=== PATIENT | male | born 1965 | race African-American/Black ===

== ENCOUNTER 2021-02-17 14:17 | Emergency (ER) | payer OTHER, SELFPAY ==
--- NOTE | ~2021-02-17 | XR_ITS ---
EXAMINATION: XR chest 1V portable EXAM DATE: 02/17/2021 15:59 INDICATION: Cough, fever, chest pain, sinus drainage. TECHNIQUE: Frontal and lateral projections of the chest obtained and reviewed. There are no prior amanda dies for comparison. FINDINGS: The lungs are clear. There are no pleural effusions. The cardiomediastinal silhouette is within normal limits. There is no pneumothorax suspected. The bones and soft tissues are unremarkab le. IMPRESSION: No acute cardiopulmonary findings. Reviewed, dictated and finalized at location A. [employer]IST
[2021-02-17 14:28] VITALS: BP 102/79; PULSE 97; RESP 18; TEMP 37.8; O2SAT 100
[2021-02-17 15:38] VITALS: BP 133/83; PULSE 112; RESP 20; TEMP 39; O2SAT 100
[2021-02-17] MEDS: ACETAMINOPHEN 500 MG TABLET 1000 MG PO (16:14)
[2021-02-17 17:44] VITALS: BP 123/80; PULSE 104; RESP 18; TEMP 37.9; O2SAT 98
--- NOTE | 2021-02-17 17:45 | ED.GENADULT ---
HPI - General Adult General Chief complaint: Upper Respiratory Infection Stated complaint: cough Time Seen by Provider: 02/17/21 15:45 History of Present Illness HPI narrative: Patient is a 56-year-old male who presents ER with viral symptoms. Reports over the last 2 days he has been having fevers with chills and sweats. He has been having runny nose with sore throat and productive cough. He has had recurrent sneezing. Patient has had 3 Covid vaccinations with his most recent one January 252020. No aggravating or alleviating factors. No urinary symptoms. Related Data Allergies Allergy/AdvReac Type Severity Reaction Status Date / Time No Known Allergies Allergy Unknown Unknown Verified 02/17/21 15:42 Review of Systems Review of Systems: All systems reviewed & are unremarkable except as noted in HPI and below Constitutional: Constitutional: Reports chills, Reports fatigue and Reports fever(s) ENT: Denies dysphagia, Reports nasal congestion and Reports sore throat Cardiovascular: Cardiovascular: Denies chest pain, Denies rapid heart rate and Denies radiating jaw, neck or arm pain Respiratory: Respiratory: Reports cough, Denies dyspnea and Denies wheezing Gastrointestinal: Gastrointestinal: Denies abdominal pain, Denies nausea and Denies vomiting Genitourinary: Genitourinary: Denies dysuria and Denies urinary frequency PMFSH Past Medical History Medical History (Updated 02/17/21 @ 17:54 by Ihsan Keith MD) History of seizure disorder Surgical History Surgical History (Updated 02/17/21 @ 17:51 by Ihsan Keith MD) History of orthopedic surgery Pins in the right forearm Exam Narrative: GENERAL: Well-appearing, well-nourished, and in no acute distress. HEAD: Normocephalic, atraumatic. EYES: PERRL and EOMI. ENT: Mucous membranes moist. CHEST: Clear to auscultation. No respiratory distress. HEART: Tachycardic regular. Normal peripheral pulses. EXTREMITIES: Normal range of motion. No edema. NEURO: Alert and oriented x3. PSYCH: Normal mood and affect. Course Course Emergency Course: Influenza negative. Will swab for Covid. Declined IV fluid. Discharge home. Vital Signs Vital signs: Vital Signs Temperature 100.0 F H 02/17/21 14:28 Pulse Rate 97 02/17/21 14:28 Respiratory Rate 18 02/17/21 14:28 Blood Pressure 102/79 02/17/21 14:28 Pulse Oximetry 100 02/17/21 14:28 Temperature 102.2 F H 02/17/21 15:38 Pulse Rate 112 H 02/17/21 15:38 Respiratory Rate 20 02/17/21 15:38 Blood Pressure 133/83 02/17/21 15:38 Pulse Oximetry 100 02/17/21 15:38 Medical Decision Making Vital Signs Vital Signs: Vital Signs Temperature 100.0 F H 02/17/21 14:28 Pulse Rate 97 02/17/21 14:28 Respiratory Rate 18 02/17/21 14:28 Blood Pressure 102/79 02/17/21 14:28 Pulse Oximetry 100 02/17/21 14:28 Temperature 102.2 F H 02/17/21 15:38 Pulse Rate 112 H 02/17/21 15:38 Respiratory Rate 20 02/17/21 15:38 Blood Pressure 133/83 02/17/21 15:38 Pulse Oximetry 100 02/17/21 15:38 Lab Data Labs: Influenza A Screen Negative Reference Range: Negative Influenza B Screen Negative Reference Range: Negative Discharge Plan Discharge Clinical Impression: Viral infection Patient Disposition: Home, Self-Care Condition: Stable Instructions: Viral Syndrome (ED) Additional Instructions: Return the ER if you have fever of 100.4 ?F, you cannot keep down food or water, you have chest pain or shortness of breath, you have additional concerns. Remain in isolation until you receive a negative Covid test. Follow-up/Referrals: PHYSICIAN NOT ON STAFF,NONSTAFF [Primary Care Provider] - 1 Week
[2021-02-17 18:12] VITALS: BP 115/81; PULSE 110; RESP 16; TEMP 37.9; O2SAT 99
[2021-02-18 20:10] LABS: SARS-CoV-2 RNA PCR Negative
== END 2021-02-17 18:15 | disposition home or self-care (01) ==
PROVIDERS: Emergency Provider Emergency Medicine
DX: B34.9 Viral infection, unspecified (principal); Z20.822 Contact with and (suspected) exposure to COVID-19; G40.909 Epilepsy, unspecified, not intractable, without status epilepticus
CPT/HCPCS: 71045; 87804; 99283; A9270; C9803; U0003; U0005

== ENCOUNTER 2021-03-16 10:00 | Emergency (ER) | payer OTHER, SELFPAY ==
[2021-03-16 10:03] VITALS: BP 152/78; PULSE 70; RESP 16; TEMP 36.1; O2SAT 100
--- NOTE | 2021-03-16 10:46 | ED.EAR ---
HPI - Ear Problem General Chief complaint: Ear Stated complaint: Ear ache Time Seen by Provider: 03/16/21 10:34 Source: patient Mode of arrival: ambulatory Limitations: no limitations History of Present Illness HPI Narrative: This is a 56-year-old male that presents to the emergency department for right ear pain. Reports he noted a spot on the outer ear that was tender a couple of days ago. Reports when he woke up today he noticed an area of swelling. Denies fever or drainage. Related Data Allergies Allergy/AdvReac Type Severity Reaction Status Date / Time No Known Allergies Allergy Unknown Unknown Verified 02/17/21 15:42 Review of Systems Review of Systems: CONSTITUTIONAL: Denies fever ENT: Reports otalgia. All systems reviewed & are unremarkable except as noted in HPI and below PMFSH Past Medical History Medical History (Updated 03/16/21 @ 10:50 by Melissa Marion PA-C) History of diabetes mellitus History of seizure disorder Surgical History Surgical History (Updated 02/17/21 @ 17:51 by Ihsan Keith MD) History of orthopedic surgery Pins in the right forearm Social History Social History (Updated 03/16/21 @ 10:47 by Melissa Marion PA-C) Smoking status: Current every day smoker Exam Narrative: GENERAL: Well-appearing, well-nourished, and in no acute distress. HEAD: Normocephalic, atraumatic. EYES: EOMI. ENT: Bilateral external auditory canals are normal. Bilateral TMs pearly escalona non-bulging. Right outer ear with a small (1.5cm) area of erythema with central punctum NECK: Supple. No adenopathy or masses. CHEST: No respiratory distress. HEART: Regular rate EXTREMITIES: Normal range of motion. No edema. SKIN: Warm, dry, no rash. NEURO: No focal deficits. Alert and oriented x3. PSYCH: Normal mood and affect Course Vital Signs Vital signs: Vital Signs Temperature 97.0 F L 03/16/21 10:03 Pulse Rate 70 03/16/21 10:03 Respiratory Rate 16 03/16/21 10:03 Blood Pressure 152/78 H 03/16/21 10:03 Pulse Oximetry 100 03/16/21 10:03 Temperature 97.0 F L 03/16/21 10:03 Pulse Rate 70 03/16/21 10:03 Respiratory Rate 16 03/16/21 10:03 Blood Pressure 152/78 H 03/16/21 10:03 Pulse Oximetry 100 03/16/21 10:03 Procedures Abscess I/D other: Date of Incision: 03/16/21 Time of Incision: 10:48 Side (if applicable): right Sedation/analgesia: none Local Anesthetic: none Technique: other (purulent drainage manually expressed) Irrigation: No Packing used?: none I&D Results: Pus and Blood Medical Decision Making MDM Narrative Medical decision making narrative: Patient presents to the emergency department for a small abscess noted to the right external ear. He is afebrile and nontoxic-appearing. External auditory canal and TM is normal. I did express drainage from a small abscess on the outer ear. This was sent for culture. Patient will be started on oral antibiotics. He is stable and felt appropriate for further outpatient evaluation. He was given warnings to return to the ER Vital Signs Vital Signs: Vital Signs Temperature 97.0 F L 03/16/21 10:03 Pulse Rate 70 03/16/21 10:03 Respiratory Rate 16 03/16/21 10:03 Blood Pressure 152/78 H 03/16/21 10:03 Pulse Oximetry 100 03/16/21 10:03 Temperature 97.0 F L 03/16/21 10:03 Pulse Rate 70 03/16/21 10:03 Respiratory Rate 16 03/16/21 10:03 Blood Pressure 152/78 H 03/16/21 10:03 Pulse Oximetry 100 03/16/21 10:03 Critical Care Time Critical Care Time Critical Care Time: No Discharge Plan Discharge Clinical Impression: Abscess of right external ear Patient Disposition: Home, Self-Care Condition: Stable Instructions: Antibiotic Form, Abscess (ED) Additional Instructions: Return if symptoms worsen or concerns: any increase in redness, swelling, pain or fever over 101 Take antibiotics as directed. Clean wound wit
== END 2021-03-16 10:55 | disposition home or self-care (01) ==
LOC: ANHED 10:51
PROVIDERS: Emergency Provider Emergency Medicine
DX: H60.01 Abscess of right external ear (principal); E11.9 Type 2 diabetes mellitus without complications; G40.909 Epilepsy, unspecified, not intractable, without status epilepticus; F17.200 Nicotine dependence, unspecified, uncomplicated
CPT/HCPCS: 87070; 87205; 99283

== ENCOUNTER 2021-06-14 17:58 | Emergency (ER) | payer OTHER, SELFPAY ==
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
[2021-06-14 18:02] VITALS: BP 145/89; PULSE 69; RESP 18; TEMP 36.4; O2SAT 100
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
== END 2021-06-14 19:47 | disposition home or self-care (01) ==
PROVIDERS: Emergency Provider Emergency Medicine
DX: M67.431 Ganglion, right wrist (principal); E11.9 Type 2 diabetes mellitus without complications; G40.909 Epilepsy, unspecified, not intractable, without status epilepticus
CPT/HCPCS: 73130; 99283

== ENCOUNTER 2021-06-27 16:13 | Emergency (ER) | payer OTHER, SELFPAY ==
--- NOTE | ~2021-06-27 | CT_ITS ---
EXAMINATION: CT brain wo con DATE: 06/27/2021 17:29 INDICATION: dizziness TECHNIQUE: Computed tomography (CT) of the head was performed without intravenous contrast. The mA wa s adjusted according to patient size. Iterative reconstruction technique was employed. The dose-lengt h product was 605.33 mGy-cm. COMPARISON: None FINDINGS: No acute intracranial hemorrhage or extra-axial fluid collection. No hydrocephalus, mass, or herniation. No acute ischemic infarct. Unremarkable dural venous sinus attenuation. No acute osseous abnormality. The aerated spaces are clear. IMPRESSION: No acute intracranial process. Reviewed, dictated and finalized at location K.
[2021-06-27 16:17] VITALS: BP 121/83; PULSE 70; RESP 18; TEMP 36.5; O2SAT 100
--- NOTE | 2021-06-27 17:15 | ECG_ITS ---
Measurements Intervals [place] Rate: 52 P: 79 AR: 167 QRS: 52 QRSD: 86 T: 68 QT: 398 QTc: 373 Interpretive Statements SINUS BRADYCARDIA VOLTAGE CRITERIA FOR LVH [MEETS CRITERIA IN ONE OF: R(aVL), S(V1), R(V5), R(V5/V6)+S(V1)] NO PREVIOUS ECG AVAILABLE FOR COMPARISON Electronically Signed On 06-28-2021 11:41:20 CDT by Avery Woodruff M.D.
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
--- NOTE | 2021-06-27 17:41 | PC.NURSE ---
Pt returned from imaging
[2021-06-27 17:49] LABS: Basophils Absolute Auto 0.1 K/mm3 (0.0-0.1); Basophils Percent Auto 0.8 % (0.2-1.2); Eosinophils Absolute Auto 0.4 K/mm3 (0-0.3); Eosinophils Percent Auto 4.7 % (0-4.4); Hematocrit 43.9 % (42.0-52.0); Hemoglobin 13.6 g/dL (14.0-18.0); Immature Granulocyte Absolute 0.03 K/mm3 (0.00-0.031); Immature Granulocyte Percent A 0.4 % (0-0.5); Lymphocytes Absolute Auto 3.16 K/mm3 (0.9-3.2); Lymphocytes Percent Auto 42.5 % (18.3-44.2); Mean Corpuscular Hemoglobin 27.1 pg (26-34); Mean Corpuscular Volume 87.5 fl (80-100); Mean Platelet Volume 9.4 fl (7.4-10.4); Monocytes Absolute Auto 0.6 K/mm3 (0.1-0.6); Monocytes Percent Auto 7.5 % (2.6-8.5); Neutrophils Absolute Auto 3.3 K/mm3 (1.3-6.7); Neutrophils Percent Auto 44.1 % (45.5-73.1); Platelet Count Result 244 k/mm3 (150-375); Red Blood Count 5.02 M/mm3 (4.6-6.20); Red Cell Distribution Width 14.1 % (11.5-14.5); White Blood Count 7.4 K/mm3 (4.5-10.0)
[2021-06-27 18:00] LABS: Alanine Aminotransferase 20 U/L (4-50); Albumin Level 4.3 g/dL (3.5-5.1); Alkaline Phosphatase 80 U/L (38-126); Anion Gap 6 mmol/L (8-16); Aspartate Amino Transferase 29 U/L (17-59); Bilirubin,Total < 0.1 mg/dL (0.2-1.3); Blood Urea Nitrogen 11 mg/dL (9-20); Carbon Dioxide 26 mmol/L (22-30); Chloride 108 mmol/L (98-107); Estimated CRCL calculation 79 ml/min; Estimated Glomerular Filt Rate > 60; Glucose 86 mg/dL (65-110); Potassium 4.6 mmol/L (3.4-5.0); Sodium 140 mmol/L (137-145)
[2021-06-27 18:09] LABS: Troponin I < 0.012 ng/mL (0.000-0.034)
[2021-06-27 18:11] LABS: Phenytoin Dilantin < 3 ug/mL (10-20)
[2021-06-27 18:36] LABS: Hemoglobin A1C 6.1 % (<5.7)
[2021-06-27 18:42] LABS: Valproic Acid < 10.0 ug/mL (50-120)
[2021-06-27 18:50] LABS: Appearance Urine Clear (Clear); Bilirubin Urine Negative (Negative); Color Urine Yellow (Yellow); Glucose Urine UA Negative (Negative); Ketones Urine Negative (Negative); Leukocyte Esterase Ur Trace LEU/UL (Negative); Nitrate Urine Negative (Negative); Protein Urine Negative (Negative); Specific Grav Ur 1.025 (1.001-1.035); Urobilinogen Urine 0.2 mg/dL (<2.0)
[2021-06-27 18:56] LABS: Add Urine Microscopic? YES; Blood Urine Trace-Intact (Negative)
[2021-06-27 19:06] LABS: Bacteria Urine Trace /hpf; Squamous Epithelial Cell Urine Rare /hpf (Few)
[2021-06-27 19:29] VITALS: PULSE 78; RESP 18; O2SAT 98
== END 2021-06-27 19:29 | disposition home or self-care (01) ==
PROVIDERS: Emergency Provider Nurse Practitioner Family
DX: R42 Dizziness and giddiness (principal); G40.909 Epilepsy, unspecified, not intractable, without status epilepticus; E11.9 Type 2 diabetes mellitus without complications; F17.200 Nicotine dependence, unspecified, uncomplicated; R00.1 Bradycardia, unspecified; R94.31 Abnormal electrocardiogram [ECG] [EKG]
CPT/HCPCS: 36415; 70450; 80053; 80164; 80185; 81001; 83036; 84484; 85025; 87086; 93005; 99284

== ENCOUNTER 2021-09-21 09:28 | Outpatient (CLI) | payer OTHER, SELFPAY ==
--- NOTE | 2021-09-21 11:00 | NEURO_ITS ---
Impression: # Complains of numbness of right hand. # Right Carpal Tunnel Syndrome. # Right ulnar neuropathy across the elbow. # Possible underlying neuropathy as well. # Needle/EMG exam not requested. Nerve Conduction Studies Anti Sensory Summary Table Stim Site NR Peak (ms) P-T Amp (?V) Site1 Site2 Delta-P (ms) Dist (cm) Santos (m/s) Right Median Anti Sensory (2-3nd Digit) Wrist 3.6 21.4 Wrist 2-3nd Digit 3.6 14.0 39 Wrist 3.4 9.2 Wrist 2-3nd Digit 3.6 14.0 39 Right Radial Anti Sensory (Base 1st Digit) Wrist 2.5 33.4 Wrist Base 1st Digit 2.5 0.0 Right Ulnar Anti Sensory (5th Digit) Wrist 4.0 13.2 Wrist 5th Digit 4.0 14.0 35 Motor Summary Table Stim Site NR Onset (ms) O-P Amp (mV) Site1 Site2 Delta-0 (ms) Dist (cm) Santos (m/s) Right Median Motor (Abd Poll Brev) Wrist 4.5 1.6 Elbow Wrist 5.7 31.0 54 Elbow 10.2 3.6 Right Ulnar Motor (Abd Dig Minimi) Wrist 2.8 4.1 A Elbow Wrist 7.0 31.0 44 A Elbow 9.8 2.8 B Elbow Wrist 4.5 23.0 51 B Elbow 7.3 3.5 F Wave Studies NR F-Lat (ms) L-R F-Lat (ms) Right Median (Mrkrs) (Abd Poll Brev) 32.36 Right Ulnar (Mrkrs) (Abd Dig Min) 33.89 MTDD
== END 2021-09-21 09:29 | disposition home or self-care (01) ==
LOC: ANHNEURO 09:30
PROVIDERS: Visit Provider Plastic Surgery
DX: R20.2 Paresthesia of skin (principal); R20.0 Anesthesia of skin; G56.01 Carpal tunnel syndrome, right upper limb; G56.21 Lesion of ulnar nerve, right upper limb
CPT/HCPCS: 95909

== ENCOUNTER 2021-10-13 09:35 | Outpatient (CLI) | payer OTHER, SELFPAY ==
[2021-10-13 10:18] LABS: Anion Gap 8 mmol/L (8-16); Blood Urea Nitrogen 9 mg/dL (9-20); Calcium 8.5 mg/dL (8.4-10.2); Carbon Dioxide 27 mmol/L (22-30); Chloride 104 mmol/L (98-107); Estimated Glomerular Filt Rate > 60; Glucose 91 mg/dL (65-110); Potassium 4.4 mmol/L (3.4-5.0); Sodium 139 mmol/L (137-145)
[2021-10-13 10:22] LABS: Phenytoin Dilantin < 3 ug/mL (10-20)
[2021-10-13 11:03] LABS: Valproic Acid < 10.0 ug/mL (50-120)
== END 2021-10-13 09:36 | disposition home or self-care (01) ==
LOC: ANHSURGERY 09:40
PROVIDERS: Anesthesiology; Visit Provider Plastic Surgery
DX: Z01.818 Encounter for other preprocedural examination (principal); G40.909 Epilepsy, unspecified, not intractable, without status epilepticus; E11.9 Type 2 diabetes mellitus without complications
CPT/HCPCS: 36415; 80048; 80164; 80185

== ENCOUNTER 2021-10-19 01:13 | Day surgery (SDC) | payer OTHER, SELFPAY ==
[2021-10-12 10:06] VITALS: BMI 21.5
--- NOTE | 2021-10-12 10:17 | PC.NURSE ---
Report to the Outpatient Waiting Room, entrance under the green pavilion located off [facility], at time 6:00 on date 10/19/21. OR Time: 7:30. - You and your visitor will be asked a series of questions to screen for COVID 19 for your protection. - Only one visitor is allowed at this time. - The patient visitor is requested to leave or wait in car when not with patient. - A mask is required within the hospital. Patients may have clear liquids (water, carbonated beverages, clear teas, apple juice) until 3 hours prior to surgery (4:30) with a maximum of 20 ounces. - No food from midnight until time of surgery Take the following medications with a SIP of water the morning of surgery: DIVALPROEX, PHENYTOIN Medications to discontinue per physician: N/A Date to take last dose: N/A Please no make-up, nail vietnamese, hairspray, perfume, deodorant, or body powder the day of surgery. No jewelry (including any body piercings) or valuables the day of surgery, leave them at home. Please take a shower or bath the night before, or the morning of, surgery with an antibacterial soap. Wear comfortable, loose fitting clothing. - Jewelry must be removed prior to entering the operating room. Rings and piercings that are not removed may be cut off. - The hospital will not accept responsibility for valuables. - Please leave all valuables, including medications, at home the day of surgery. If you are going home after surgery, a licensed regional [employer] company driver must drive you home. - NO public transportation without another adult. - We recommend that an adult stay with you for 24 hours following discharge. - We also recommend that you do not drive, make important decision, drink alcoholic beverages, or take any drugs that were not prescribed by your health care provider for at least 24 hours after your discharge time. Follow any additional instructions given to you from your surgeon. If you or anyone in your household have experienced Covid symptoms in the past week, please notify your surgeon or the nurse liaison at the phone number below for possible testing. Telephone instructions given to PT - JIHAN SILVERIO and asked if any additional questions and then verbalized understanding. Patient advised to call surgeon office or pre surgery nurse liaison [phone] if any additional questions.
--- NOTE | 2021-10-19 07:10 | WPDHPUPDATE1 ---
History and Physical Update Update Date/Time: 10/19/21 07:10 History and Physical has been reviewed, including an updated exam of the patient. There are NO changes in the patient's condition. Risks, benefits, and alternatives have been discussed and questions answered. Patient agrees to proceed with procedure.
[2021-10-19 08:42] VITALS: BP 128/69; PULSE 56; RESP 20; TEMP 36.2; O2SAT 100
[2021-10-19] MEDS: LACTATED RINGERS 1,000 ML 30 ML IV CONT (09:20)
[2021-10-19 09:30] LABS: Glucose Point of Care 69 mg/dl (65-105)
--- NOTE | 2021-10-19 09:39 | WPDANESEPPF ---
Anes - Initial Pre Proc Eval Procedure: Operation Date: 10/19/21 10:30 Proposed Procedures p Right Ulnar Neuroplasty at Elbow - Jose M Shelby MD Date/Time: 10/19/21 09:39 Surgeon: Jose M Shelby MD Pre Op Diagnosis: right cubital tunnel syndrome Patient Data Age: 56 Gender: M Height: 1.77 m Weight: 67.13 kg Allergies Allergy/AdvReac Type Severity Reaction Status Date / Time No Known Allergies Allergy Unknown Unknown Verified 10/19/21 08:44 Home Medications Medication Instructions Recorded Confirmed Type divalproex 500 mg tablet,delayed 500 mg PO TID 10/12/21 10/19/21 History release glimepiride 4 mg tablet 8 mg PO DAILY 10/12/21 10/19/21 History phenytoin sodium extended 100 mg 100 mg PO BID 10/12/21 10/19/21 History capsule Laboratory Tests 10/19/21 09:26 POC Capillary Glucose 69 mg/dl mg/dl (65-105) Patient hx anesthesia problems: none Family hx anesthesia problems: none Results Review: All pre-operative results and documents have been reviewed as part of the pre-operative evaluation. [facility] Past Medical History Medical History (Updated 10/19/21 @ 09:40 by Mike Alvarez DO) Diabetes type 2, controlled Epilepsy History of diabetes mellitus History of seizure disorder Surgical History Surgical History History of orthopedic surgery Pins in the right forearm Social History Social History Smoking packs per day: 0.5 Smoking cigarettes per day: 10.0 Years smoked: 25 Smoking pack-years: 12.50 Smoking status: Current every day smoker Tobacco type: cigarettes Alcohol intake: former Alcohol use details: NONE IN 14 YEARS Substance use: never Substance use type: does not use Living arrangements: alone Spiritual care concerns: No Anes - Eval Final PreProcedure Day of Procedure 10/19/21 09:39 Patient weight: normal Heart: regular rate and rhythm Lungs: clear to auscultation Airway: Mallampati scale class II Neurological: alert and oriented Last oral intake: >/= 8 hours ASA classification: III Emergent: no Anesthetic plan: proceed Anesthesia type and monitoring: general GIVS and standard monitoring Results Review: All pre-operative results and documents have been reviewed as part of the pre-operative evaluation. Informed Consent: The patient's anesthetic plan and its attendant risks and benefits were discussed with the patient/family/POA. Questions were solicited and answers provided to the satisfaction of the patient/family/POA.
--- NOTE | 2021-10-19 10:11 | SUR.PREOP ---
0950-DR. GREEN AND Anson DORSEY RN AWARE OF PT'S POC GLUCOSE AND AWARE PT ASYMPTOMATIC.
[2021-10-19] MEDS: LIDO 1%/EPINEPHRINE 1:100,000 20 ML VIAL 10 ML INFILTRATE (10:41)
[2021-10-19] MEDS: KETOROLAC 15 MG/ML VIAL (*BKC) IV PUSH (10:42)
[2021-10-19 10:58] VITALS: BP 85/50; PULSE 54; RESP 12; O2SAT 100
[2021-10-19 11:09] LABS: Glucose Point of Care 52 mg/dl (65-105)
[2021-10-19 11:10] VITALS: BP 91/54; PULSE 49; RESP 14; O2SAT 100
[2021-10-19] MEDS: DEXTROSE 50% 25 GM/50 ML SYRINGE IV PUSH (11:10)
--- NOTE | 2021-10-19 11:16 | W.PM.PROC2 ---
Procedure Note - Detailed Date of Procedure 10/19/21 Pre-op Diagnosis right cubital tunnel syndrome Post-op Diagnosis Same Procedure Performed Right ulnar neuroplasty at the elbow Surgeon Jose M Shelby MD Board Machine Set Up Operator Ninfa S Anesthesia MAC Description of Procedure The right cubital tunnel region was marked on the patient in the holding area. He was then taken to the operating room where he was placed supine on the operating table. Time-out was held and confirmed. The extremity was prepped and draped in usual fashion. The markings made for the incision. This area was infiltrated with 1% lidocaine with epinephrine. The extremity was exsanguinated and the tourniquet inflated 250 mmHg. The elbow was flexed ends supported on folded towels. The incision was made as marked and dissection was carried down to the ulnar nerve. This lay anterior to the fairly prominent triceps muscle. The nerve was dissected from the muscle and followed proximally were there appeared to be no areas of compression. Following the nerve distally Carter ligament was divided and the muscle fascia was opened. Either the places may have been the source of compression. The tourniquet was released several bleeding points were electrocoagulated. The wound was closed with intradermal 3-0 Monocryl at several spots coapted in the skin. The skin was then glued. The usual bandage was applied. He is discharged from the operating room stable condition. Estimated Blood Loss 5 Drains No Packing No Pathology None sent Complications No immediate complications Condition Stable Disposition Same day
[2021-10-19 11:30] VITALS: BP 100/60; PULSE 43; RESP 12; O2SAT 100
[2021-10-19 12:00] VITALS: BP 117/68; PULSE 47; RESP 20
[2021-10-19 12:02] LABS: Glucose Point of Care 107 mg/dl (65-105)
[2021-10-19 12:45] VITALS: BP 131/70; PULSE 50; RESP 20
== END 2021-10-19 12:51 | disposition home or self-care (01) ==
PROVIDERS: Visit Provider Plastic Surgery
PROC: (CPT 64718; principal; 2021-10-19 10:30)
DX: G56.21 Lesion of ulnar nerve, right upper limb (principal); E11.9 Type 2 diabetes mellitus without complications; G40.909 Epilepsy, unspecified, not intractable, without status epilepticus; F17.210 Nicotine dependence, cigarettes, uncomplicated
CPT/HCPCS: 64718; 82948; A9270; J1885; J2250; J2704; J3010; J7120

== ENCOUNTER 2021-11-16 00:40 | Day surgery (SDC) | payer OTHER, SELFPAY ==
--- NOTE | 2021-11-06 12:33 | PC.NURSE ---
Addendum entered by Lurdes Melchor RN 11/08/21 12:02: PT TO ARRIVE AT 0930 ON FOR SURGERY AT 1130. Original Note: Report to the Outpatient Waiting Room, entrance under the green pavilion located off [facility], at time __0700 on date _11/09/21 . OR Time: _09 . - You and your visitor will be asked to self-screen and do not enter if you have any COVID symptoms. - Only one visitor and NO children visitors are allowed at this time. - The patient visitor is requested to leave or wait in car when not with patient due to restrictions. - A mask is required within the hospital. Patients may have clear liquids (water, carbonated beverages, clear teas, apple juice) until 3 hours prior to surgery with a maximum of 20 ounces. - No food from midnight until time of surgery - Infants may have breast milk until 4 hours before surgery, infant formula 6 hours prior to surgery. - Children will be allowed to drink immediately following surgery. If applicable, please bring a bottle or sippy cup to assist with drinking. Juice, water, soda, and popsicles are readily available. For infants on formula, please bring formula the day of surgery. Pacifiers are allowed. Take the following medications with a SIP of water the morning of surgery: _DIVALPROEX AND PHENYTOIN Medications to discontinue per physician ____NONE Date to take last dose Please no make-up, nail telugu, hairspray, perfume, deodorant, or body powder the day of surgery. No jewelry (including any body piercings) or valuables the day of surgery, leave them at home. Please take a shower or bath the night before, or the morning of, surgery with an antibacterial soap. Wear comfortable, loose fitting clothing. Children are encouraged to wear pajamas. - Jewelry must be removed prior to entering the operating room. Rings and piercings that are not removed may be cut off. - The hospital will not accept responsibility for valuables. - Please leave all valuables, including medications, at home the day of surgery. If you are going home after surgery, a licensed telephone directory distributor driver must drive you home. - NO public transportation without another adult. - We recommend that an adult stay with you for 24 hours following discharge. - We also recommend that you do not drive, make important decision, drink alcoholic beverages, or take any drugs that were not prescribed by your health care provider for at least 24 hours after your discharge time. For Pediatric surgeries, we recommend two adults accompany the child home (only one inside the building at this time). Follow any additional instructions given to you from your surgeon. If you or anyone in your household have experienced Covid symptoms in the past week, please notify your surgeon or the nurse liaison at the phone number below for possible testing. Telephone instructions given to __PATIENT and asked if any additional questions and then verbalized understanding. Patient advised to call surgeon office or pre surgery nurse liaison [phone] if any additional questions.
[2021-11-06 12:42] VITALS: BMI 20.7
--- NOTE | 2021-11-08 12:01 | PC.NURSE ---
Pt states no changes in medications or health history since initial interview. New pre-op instructions reviewed with pt. Pt denies further questions at this time.
[2021-11-16 09:29] VITALS: BP 138/72; PULSE 99; RESP 18; TEMP 36.3; O2SAT 100
[2021-11-16] MEDS: LACTATED RINGERS 1,000 ML 30 ML IV CONT (09:55)
[2021-11-16 10:00] LABS: Glucose Point of Care 55 mg/dl (65-105)
--- NOTE | 2021-11-16 10:03 | SUR.PREOP ---
PT AND FAMILY INFORMED OF SURGICAL TIME DELAY. DENIES NEEDS AT THIS TIME. B.S. 53 STATES THIS IS HIS NORMAL LEVEL, INFORMED TO INFORM STAFF IF HE FEELS HIS BLOOD SUGAR IS GETTING LOWER.
[2021-11-16] MEDS: DEXTROSE 50% 25 GM/50 ML SYRINGE IV PUSH ×3 (10:17→13:45)
[2021-11-16 11:49] LABS: Glucose Point of Care 50 mg/dl (65-105)
--- NOTE | 2021-11-16 11:50 | P.PNAN_ITS ---
Anes - Initial Pre Proc Eval Procedure: Operation Date: 11/16/21 11:30 Proposed Procedures p Right Open Carpal Tunnel Release - Jose M Shelby MD Date/Time: 11/16/21 11:50 Surgeon: Jose M Shelby MD Pre Op Diagnosis: right carpal tunnel syndrome Patient Data Age: 56 Gender: M Height: 1.75 m Weight: 60.3 kg Last Vital Signs Temp 97.4 F L 11/16/21 09:29 Pulse 99 11/16/21 09:29 Resp 18 11/16/21 09:29 BP 138/72 11/16/21 09:29 Pulse Ox 100 11/16/21 09:29 O2 Del Method Room Air 11/16/21 09:29 Allergies Allergy/AdvReac Type Severity Reaction Status Date / Time No Known Allergies Allergy Unknown Unknown Verified 11/16/21 09:39 Home Medications Medication Instructions Recorded Confirmed Type divalproex 500 mg tablet,delayed 500 mg PO TID 10/12/21 11/16/21 History release glimepiride 4 mg tablet 8 mg PO DAILY 10/12/21 11/16/21 History phenytoin sodium extended 100 mg 100 mg PO BID 10/12/21 11/16/21 History capsule hydrocodone 5 mg-acetaminophen 325 1 tablet PO Q6H PRN pain #6 tabs 10/19/21 11/16/21 Rx mg tablet Laboratory Tests 11/16/21 11/16/21 09:57 11:47 POC Capillary Glucose 55 mg/dl L* mg/dl 50 mg/dl L* mg/dl (65-105) (65-105) Patient hx anesthesia problems: none Family hx anesthesia problems: none Results Review: All pre-operative results and documents have been reviewed as part of the pre- operative evaluation. [facility] Past Medical History Medical History (Updated 10/19/21 @ 09:40 by Mike Alvarez DO) Diabetes type 2, controlled Epilepsy History of diabetes mellitus History of seizure disorder Surgical History Surgical History History of orthopedic surgery Pins in the right forearm Social History Social History Smoking packs per day: 0.5 Smoking cigarettes per day: 10.0 Years smoked: 25 Smoking pack-years: 12.50 Smoking status: Current every day smoker Tobacco type: cigarettes Alcohol intake: former Alcohol use details: NONE IN 14 YEARS Substance use: never Substance use type: does not use Living arrangements: with family Spiritual care concerns: No Anes - Eval Final PreProcedure Day of Procedure 11/16/21 11:50 Patient weight: normal Heart: regular rate and rhythm Lungs: clear to auscultation Airway: Mallampati scale class II Neurological: alert and oriented Last oral intake: >/= 8 hours ASA classification: III Emergent: no Anesthetic plan: proceed Anesthesia type and monitoring: general GIVS and standard monitoring Results Review: All pre-operative results and documents have been reviewed as part of the pre- operative evaluation. Informed Consent: The patient's anesthetic plan and its attendant risks and benefits were discussed with the patient/family/POA. Questions were solicited and answers pr ovided to the satisfaction of the patient/family/POA.
--- NOTE | 2021-11-16 12:03 | P.PNAN_ITS ---
Anes - Initial Pre Proc Eval Procedure: Operation Date: 11/16/21 11:30 Proposed Procedures p Right Open Carpal Tunnel Release - Jose M Shelby MD Date/Time: 11/16/21 12:03 Surgeon: Jose M Shelby MD Pre Op Diagnosis: right carpal tunnel syndrome Patient Data Age: 56 Gender: M Height: 1.75 m Weight: 60.3 kg Last Vital Signs Temp 97.4 F L 11/16/21 09:29 Pulse 99 11/16/21 09:29 Resp 18 11/16/21 09:29 BP 138/72 11/16/21 09:29 Pulse Ox 100 11/16/21 09:29 O2 Del Method Room Air 11/16/21 09:29 Allergies Allergy/AdvReac Type Severity Reaction Status Date / Time No Known Allergies Allergy Unknown Unknown Verified 11/16/21 09:39 Home Medications Medication Instructions Recorded Confirmed Type divalproex 500 mg tablet,delayed 500 mg PO TID 10/12/21 11/16/21 History release glimepiride 4 mg tablet 8 mg PO DAILY 10/12/21 11/16/21 History phenytoin sodium extended 100 mg 100 mg PO BID 10/12/21 11/16/21 History capsule hydrocodone 5 mg-acetaminophen 325 1 tablet PO Q6H PRN pain #6 tabs 10/19/21 11/16/21 Rx mg tablet Laboratory Tests 11/16/21 11/16/21 09:57 11:47 POC Capillary Glucose 55 mg/dl L* mg/dl 50 mg/dl L* mg/dl (65-105) (65-105) Patient hx anesthesia problems: none Family hx anesthesia problems: none Results Review: All pre-operative results and documents have been reviewed as part of the pre- operative evaluation. [facility] Past Medical History Medical History (Updated 10/19/21 @ 09:40 by Mike Alvarez DO) Diabetes type 2, controlled Epilepsy History of diabetes mellitus History of seizure disorder Surgical History Surgical History History of orthopedic surgery Pins in the right forearm Social History Social History Smoking packs per day: 0.5 Smoking cigarettes per day: 10.0 Years smoked: 25 Smoking pack-years: 12.50 Smoking status: Current every day smoker Tobacco type: cigarettes Alcohol intake: former Alcohol use details: NONE IN 14 YEARS Substance use: never Substance use type: does not use Living arrangements: with family Spiritual care concerns: No Anes - Eval Final PreProcedure Day of Procedure 11/16/21 12:03 Patient weight: normal Heart: regular rate and rhythm Lungs: clear to auscultation Airway: Mallampati scale class II Neurological: alert and oriented Last oral intake: >/= 8 hours ASA classification: III Emergent: no Anesthetic plan: proceed Anesthesia type and monitoring: general GIVS and standard monitoring Results Review: All pre-operative results and documents have been reviewed as part of the pre- operative evaluation. Informed Consent: The patient's anesthetic plan and its attendant risks and benefits were discussed with the patient/family/POA. Questions were solicited and answers pr ovided to the satisfaction of the patient/family/POA.
[2021-11-16 12:51] LABS: Glucose Point of Care 80 mg/dl (65-105)
[2021-11-16] MEDS: LIDO 1%/EPINEPHRINE 1:100,000 50 ML VIAL INFILTRATE (12:52)
[2021-11-16 13:32] VITALS: BP 80/41; PULSE 46; RESP 12; O2SAT 97
--- NOTE | 2021-11-16 13:39 | W.PM.PROC2 ---
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 He was taken to the operating room where he was placed supine on the operating table. He was administered IV sedation. The extremity was prepped and draped in usual fashion. The site was marked for the incision. The extremity was exsanguinated and the tourniquet inflated to 250 mmHg. The incision was made as marked and dissection was carried through the subcutaneous tissue with sharp and blunt dissection revealing the palmar aponeurosis. This was incised with a 15. blade opening the canal at the same time. Within the canal immediately identified was striated purple tissue consistent with muscle attached to the 3rd and 4th superficialis tendons. These ran the length of the carpal canal.. The transverse retinaculum was incised to completely release it. The tourniquet was released and the skin wound closed with interrupted 4-0 nylon suture. The usual bandage was applied. Estimated Blood Loss 0 Tourniquet Time 8 Drains No Packing No Pathology None sent Complications No immediate complications Condition Stable Disposition Same day
[2021-11-16 14:00] VITALS: BP 86/48; PULSE 48; RESP 20
[2021-11-16 14:02] LABS: Glucose Point of Care 46 mg/dl (65-105)
[2021-11-16 14:17] LABS: Glucose Point of Care 101 mg/dl (65-105)
[2021-11-16 14:30] VITALS: BP 100/59; PULSE 50; RESP 20
--- NOTE | 2021-11-16 18:38 | SUR.PHASEII ---
182 PATIENT CALLED RE: NO PAIN MED AT [facility]. JENNIFER CALLED. 1836 DR. RODRIGUEZ CALLED BACK WHO STATES HE WILL SEND SCRIPT TO [facility].
--- NOTE | 2021-11-16 18:43 | SUR.PHASEII ---
PATIENT CALLED TO RELAY MESSAGE THAT DR. RODRIGUEZ IS SENDING IN SCRIPT FOR PAIN MED.
== END 2021-11-16 14:50 | disposition home or self-care (01) ==
PROVIDERS: Visit Provider Plastic Surgery
PROC: (CPT 64721; principal; 2021-11-16 11:30)
DX: G56.01 Carpal tunnel syndrome, right upper limb (principal); E11.9 Type 2 diabetes mellitus without complications; G40.909 Epilepsy, unspecified, not intractable, without status epilepticus; Z79.84 Long term (current) use of oral hypoglycemic drugs; F17.210 Nicotine dependence, cigarettes, uncomplicated
CPT/HCPCS: 64721; 82948; A9270; J2250; J2704; J3010; J7120

== ENCOUNTER 2022-02-20 16:46 | Emergency (ER) | payer OTHER, SELFPAY ==
[2022-02-20 16:49] VITALS: BP 174/88; PULSE 66; RESP 16; TEMP 36.1; O2SAT 100
--- NOTE | 2022-02-20 19:12 | ED.GENADULT ---
HPI - General Adult General Chief complaint: Unspecified <STEFAN Pearl Last Filed: 02/21/22 00:38> Stated complaint: STD check before getting <STEFAN Pearl Last Filed: 02/21/22 00:38> Time Seen by Provider: 02/20/22 18:49 <STEFAN Pearl Last Filed: 02/21/22 00:38> Source: patient <STEFAN Pearl Last Filed: 02/21/22 00:38> Mode of arrival: ambulatory <STEFAN Pearl Last Filed: 02/21/22 00:38> Limitations: no limitations <STEFAN Pearl Last Filed: 02/21/22 00:38> History of Present Illness HPI narrative: Patient is a 57 y/o male who presents to the ED with c/o wanting STD check. Patient reports he is getting soon and his fiance's family requests that anyone marrying into their family be screened for STDs. Patient denies any known exposure to STDs. He is asymptomatic. He denies any dysuria, hematuria, penile discharge, genital lesions, abdominal pain, nausea, vomiting, fevers, testicular pain or swelling. <STEFAN Pearl Last Filed: 02/21/22 00:38> Related Data Home medications: Home Medications Medication Instructions Recorded Confirmed divalproex 500 mg tablet,delayed 500 mg PO TID 10/12/21 11/16/21 release glimepiride 4 mg tablet 8 mg PO DAILY 10/12/21 11/16/21 phenytoin sodium extended 100 mg 100 mg PO BID 10/12/21 11/16/21 capsule <STEFAN Pearl Last Filed: 02/21/22 00:38> Allergies/adverse reactions: Allergies Allergy/AdvReac Type Severity Reaction Status Date / Time No Known Allergies Allergy Unknown Unknown Verified 02/20/22 18:58 <STEFAN Pearl Last Filed: 02/21/22 00:38> Review of Systems Review of Systems: CONSTITUTIONAL: Denies fever, chills, or sweats. EYES: Denies visual changes. ENT: Denies rhinorrhea, congestion, sore throat. CARDIOVASCULAR: Denies chest pain. RESPIRATORY: Denies cough or dyspnea. GASTROINTESTINAL: Denies abdominal pain, nausea, vomiting, or diarrhea. GENITOURINARY: Denies testicular pain or swelling, penile discharge, genital lesions, dysuria, or hematuria. SKIN: Denies rash or itching. MUSCULOSKELETAL: Denies back pain, joint pain, or myalgia. NEUROLOGIC: Denies headache, numbness, or weakness. <Ute Emery PA-C - Last Filed: 02/21/22 00:38> All systems reviewed & are unremarkable except as noted in HPI and below <Ute Emery PA-C - Last Filed: 02/21/22 00:38> [facility] Past Medical History Medical History: Medical History Diabetes type 2, controlled Epilepsy History of diabetes mellitus History of seizure disorder <Ute Emery PA-C - Last Filed: 02/21/22 00:38> Surgical History Surgical History: Surgical History History of orthopedic surgery Pins in the right forearm <Ute Emery PA-C - Last Filed: 02/21/22 00:38> Social History Social History: Social History Smoking packs per day: 0.5 Smoking cigarettes per day: 10.0 Years smoked: 25 Smoking pack-years: 12.50 Smoking status: Current every day smoker Tobacco type: cigarettes Alcohol intake: former Alcohol use details: NONE IN 14 YEARS Substance use: never Substance use type: does not use Spiritual care concerns: No <Ute Emery PA-C - Last Filed: 02/21/22 00:38> Exam Narrative: GENERAL: Well appearing, thin, non-toxic, in no acute distress. HEAD: Normocephalic, atraumatic. NECK: Supple. No adenopathy, no masses. RESPIRATORY: Airway patent, respirations nonlabored. Clear to auscultation bilaterally, no rales, rhonchi, wheezing. CARDIOVASCULAR: Regular rate and rhythm without murmurs, rubs, or gallops. Radial pulses 2+ and equal bilaterally. A
[2022-02-20 19:28] LABS: Add Urine Microscopic? YES; Appearance Urine Clear (Clear); Bilirubin Urine Negative (Negative); Blood Urine Trace-Intact (Negative); Color Urine Light Yellow (Yellow); Glucose Urine UA Negative (Negative); Ketones Urine Negative (Negative); Leukocyte Esterase Ur 1+ LEU/UL (Negative); Nitrate Urine Negative (Negative); Protein Urine Negative (Negative); Specific Grav Ur <= 1.005 (1.001-1.035); Urobilinogen Urine 0.2 mg/dL (<2.0); pH Urine 6.5 (5.0-9.0)
[2022-02-20 19:32] LABS: Bacteria Urine Trace /hpf; RBC Urine 0-2 /hpf (0-2); Squamous Epithelial Cell Urine Rare /hpf (Few)
[2022-02-20 20:55] LABS: HIV 1/2 Ab P24 Ag Result Negative (Negative)
[2022-02-21 11:07] LABS: Rapid Plasma Reagin Non-Reactive (NonReactive)
== END 2022-02-20 20:43 | disposition home or self-care (01) ==
PROVIDERS: Physician Assistant; Emergency Provider Emergency Medicine
DX: Z11.3 Encounter for screening for infections with a predominantly sexual mode of transmission (principal); F17.210 Nicotine dependence, cigarettes, uncomplicated; E11.9 Type 2 diabetes mellitus without complications; G40.909 Epilepsy, unspecified, not intractable, without status epilepticus
CPT/HCPCS: 36415; 81001; 86592; 86703; 87086; 87491; 87591; 87661; 99283; G0432

== ENCOUNTER 2023-02-24 15:28 | Emergency (ER) | payer OTHER, SELFPAY ==
--- NOTE | ~2023-02-24 | XR_ITS ---
EXAM: XR knee RT 3V DATE: 02/24/2023 16:18 HISTORY: right knee pain/giving out SURGERY X 4 YEARS AGO . COMPARISON: None available. FINDINGS: Normal mineralization. No fracture or dislocation. No lytic or blastic lesion. Mild osteoa rthritis. No erosion or periosteal change. Soft tissues within normal limits. IMPRESSION: No acute osseous finding in the right knee. Reviewed, dictated and finalized at location K. ER HAND
[2023-02-24 15:31] VITALS: BP 138/101; PULSE 107; RESP 16; TEMP 36.4; O2SAT 100
--- NOTE | 2023-02-24 15:58 | ED.LOWEXIN ---
HPI - Extremity Injury (Lower) General Chief Complaint: Extremity Injury, Lower Stated Complaint: right knee keeps giving out on me Time Seen by Provider: 02/24/23 15:38 Source: patient Mode of arrival: ambulatory Limitations: no limitations History of Present Illness HPI Narrative: Serafin is a 58-year-old male patient presenting to the ER today with complaints of knee pain for the past 3 days. He reports that his knee keeps giving out on him. He denies any known injury. States he has had surgery on his knee in the past. Related Data Home Medications Medication Instructions Recorded Confirmed divalproex 500 mg tablet,delayed 500 mg PO TID 10/12/21 11/16/21 release glimepiride 4 mg tablet 8 mg PO DAILY 10/12/21 11/16/21 phenytoin sodium extended 100 mg 100 mg PO BID 10/12/21 11/16/21 capsule Allergies Allergy/AdvReac Type Severity Reaction Status Date / Time No Known Allergies Allergy Unknown Unknown Verified 02/24/23 15:30 Review of Systems Review of Systems: Pertinent positives per HPI. Patient denies any fever, chills, rash, headache, visual changes, dizziness, cough, runny nose, sore throat, shortness of breath, chest pain, palpitations, nausea, vomiting, diarrhea, constipation, abdominal pain, or any urinary issues. [facility] Past Medical History Medical History Diabetes type 2, controlled Epilepsy History of diabetes mellitus History of seizure disorder Surgical History Surgical History History of orthopedic surgery Pins in the right forearm Social History Social History Smoking packs per day: 0.5 Smoking cigarettes per day: 10.0 Years smoked: 25 Smoking pack-years: 12.50 Smoking status: Current every day smoker Tobacco type: cigarettes Alcohol intake: former Alcohol use details: NONE IN 14 YEARS Substance use: never Substance use type: does not use Living arrangements: with family Spiritual care concerns: No Comments At the time of my signature, I reviewed and agree with the nursing past medical, surgical, social, and family history. There is no relevant family history pertinent to the patient complaint. Exam Narrative: General: Well-developed, well nourished, in no apparent distress Head: Normocephalic, atraumatic. Cardio: Regular rate and rhythm, s1 and s2 normal, no murmur appreciated. Resp: Clear to auscultation bilaterally, no rhonchi, rales, wheezing or rubs. Musculoskeletal: No deformity, tender to palpation over the right anterior, medial, and lateral knee, grossly normal range of motion, muscle strength strong and equal, peripheral pulse strong, no edema, no cyanosis, normal gait and station Course Course Emergency Course: Portions of this record may have been created with voice recognition software. Vital Signs Vital signs: Vital Signs Temperature 36.4 C 02/24/23 15:31 Pulse Rate 107 H 02/24/23 15:31 Respiratory Rate 16 02/24/23 15:31 Blood Pressure 138/101 H 02/24/23 15:31 Pulse Oximetry 100 02/24/23 15:31 Oxygen Delivery Room Air 02/24/23 15:31 Temperature 36.4 C 02/24/23 15:31 Pulse Rate 107 H 02/24/23 15:31 Respiratory Rate 16 02/24/23 15:31 Blood Pressure 138/101 H 02/24/23 15:31 Pulse Oximetry 100 02/24/23 15:31 Oxygen Delivery Room Air 02/24/23 15:31 Vital signs reviewed MDM - Extremity Injury (Lower) MDM Narrative Medical decision making narrative: At the time of visit patient is resting comfortably on the exam table. Patient appears to be nontoxic. X-ray of the right knee was performed and shows no sign of acute fracture or malalignment. I suspect patient has acute knee pain. Recommend following up with his primary care doctor for further evaluation if symptoms persist. Recommend wearing a hinged knee bra
== END 2023-02-24 17:13 | disposition home or self-care (01) ==
PROVIDERS: Emergency Provider Nurse Practitioner Family
DX: M25.561 Pain in right knee (principal); E11.9 Type 2 diabetes mellitus without complications; G40.909 Epilepsy, unspecified, not intractable, without status epilepticus; F17.210 Nicotine dependence, cigarettes, uncomplicated; Z79.84 Long term (current) use of oral hypoglycemic drugs
CPT/HCPCS: 73562; 99283

== ENCOUNTER 2023-03-17 11:23 | Inpatient (IN) | payer OTHER, SELFPAY ==
[2023-03-17] VITALS (24 sets, daily range): BP systolic 103–167; BP diastolic 70–90; PULSE 66–119; RESP 13–20; TEMP 36.6–37; O2SAT 95–100; BMI 20.8
--- NOTE | ~2023-03-17 | XR_ITS ---
EXAMINATION: XR chest 1V portable INDICATION: STEMI, post cardiac catheterization TECHNIQUE: Portable AP chest at 1413 hours COMPARISON: 02/17/2021 FINDINGS: The lungs are free of acute opacities. No pleural effusion or pneumothorax. The cardiomedia stinal silhouette is normal. IMPRESSION: 1. No acute cardiopulmonary abnormality. Reviewed, dictated and finalized at location F. RALOGY PROFESSOR
--- NOTE | 2023-03-17 11:27 | ECG_ITS ---
Measurements Intervals [place] Rate: 85 P: 78 [place]: 161 QRS: 34 QRSD: 93 T: 62 QT: 343 QTc: 409 Interpretive Statements SINUS RHYTHM POSSIBLE LEFT ATRIAL ENLARGEMENT ST ELEVATION IN ANTEROLAT/INF LEADS- CONSIDER ACUTE INJURY BASELINE WANDER- I, II, III ABNORMAL ECG COMPARED TO ECG 06/27/2021 17:47:32 [address]M NOW PRESENT [address] ELEVATION NOW PRESENT Electronically Signed On 03-17-2023 16:19:24 ADMINISTRATIVE TECH by Mikel Lopez D.O.
[2023-03-17] MEDS: ASPIRIN 81 MG CHEWABLE TABLET 324 MG PO (11:33)
--- NOTE | 2023-03-17 11:43 | ED.CHESTPAIN ---
HPI - Chest Pain General Chief Complaint: Chest Pain Stated Complaint: neck pain, pain upon inspiration Source: patient Mode of arrival: ambulatory Limitations: no limitations History of Present Illness HPI narrative: 4 years old male came to the emergency room by private car complaining of central chest pain, squeezing, pressure started 4 days ago, steady. He denies aggravating or relieving factors. History of hyperlipidemia, diabetes, tobacco abuse strong family history of coronary artery disease. EKG on arrival showed acute STEMI, STEMI protocol started, Dr. huizar was notified. Related Data Home Medications Medication Instructions Recorded Confirmed divalproex 500 mg tablet,delayed 500 mg PO TID 10/12/21 11/16/21 release glimepiride 4 mg tablet 8 mg PO DAILY 10/12/21 11/16/21 phenytoin sodium extended 100 mg 100 mg PO BID 10/12/21 11/16/21 capsule Allergies Allergy/AdvReac Type Severity Reaction Status Date / Time No Known Allergies Allergy Unknown Unknown Verified 03/17/23 11:33 Review of Systems Review of Systems: All systems reviewed & are unremarkable except as noted in HPI and below PMFSH Past Medical History Medical History Diabetes type 2, controlled Epilepsy History of diabetes mellitus History of seizure disorder Surgical History Surgical History History of orthopedic surgery Pins in the right forearm Social History Social History Smoking packs per day: 0.5 Smoking cigarettes per day: 10.0 Years smoked: 25 Smoking pack-years: 12.50 Smoking status: Current every day smoker Tobacco type: cigarettes Alcohol intake: former Alcohol use details: NONE IN 14 YEARS Substance use: never Substance use type: does not use Living arrangements: with family Spiritual care concerns: No Exam Narrative: General appearance: Well-developed, well-nourished Skin: Normal color Head: Normocephalic, nontraumatic Eyes: Clear conjunctiva ENT: Oropharynx normal, ears normal, nose normal Neck: Supple, nontender Chest and respiratory: Airway patent, no respiratory distress, no accessory muscle use Heart: Regular rate/rhythm Abdomen: Soft, nontender, no organomegaly, quiet bowel sounds Vascular: Normal peripheral pulses, normal capillary refill. Musculoskeletal: Normal range of motion, nontender back Neurologic: Alert and oriented ?3, PROJECT MANAGER INTERIOR DESIGN is normal as tested, no gross motor deficit Course Consultations Consultation #1: Dr. huizar Date: 03/17/23 Time: 11:40 Vital Signs Vital signs: Vital Signs Temperature 36.6 C 03/17/23 11:25 Pulse Rate 119 H 03/17/23 11:25 Respiratory Rate 16 03/17/23 11:25 Blood Pressure 129/74 03/17/23 11:25 Pulse Oximetry 100 03/17/23 11:25 Oxygen Delivery Room Air 03/17/23 11:25 Temperature 36.6 C 03/17/23 11:25 Pulse Rate 96 03/17/23 11:46 Respiratory Rate 16 03/17/23 11:33 Blood Pressure 119/73 03/17/23 11:46 Pulse Oximetry 100 03/17/23 11:46 Oxygen Delivery Room Air 03/17/23 11:25 MDM - Chest Pain MDM Narrative Medical decision making narrative: Patient presents with chest pain for the last 4 days, EKG on arrival showed acute STEMI, STEMI protocol started. Vital signs on arrival stable Coronary risk factors are history of diabetes, hyperlipidemia, smoking, strong family history of coronary artery disease Patient to go to cardiac catheterization discussed with Dr. huizar Differential Diagnosis Differential diagnosis: Likely st elevation myocard
[2023-03-17 11:45] LABS: Basophils Absolute Auto 0.1 K/mm3 (0.0-0.1); Basophils Percent Auto 0.6 % (0.2-1.2); Eosinophils Percent Auto 0.2 % (0-4.4); Hemoglobin 12.5 g/dL (14.0-18.0); Immature Granulocyte Absolute 0.07 K/mm3 (0.00-0.031); Immature Granulocyte Percent A 0.6 % (0-0.5); Lymphocytes Absolute Auto 1.85 K/mm3 (0.9-3.2); Lymphocytes Percent Auto 14.7 % (18.3-44.2); Mean Corpuscular HGB Conc 30.5 g/dl (32-36); Mean Corpuscular Hemoglobin 26.6 pg (26-34); Mean Corpuscular Volume 87.2 fl (80-100); Mean Platelet Volume 9.4 fl (7.4-10.4); Monocytes Absolute Auto 1.3 K/mm3 (0.1-0.6); Monocytes Percent Auto 10.6 % (2.6-8.5); Neutrophils Absolute Auto 9.2 K/mm3 (1.3-6.7); Neutrophils Percent Auto 73.3 % (45.5-73.1); Platelet Count Result 250 k/mm3 (150-375); Red Cell Distribution Width 13.8 % (11.5-14.5); White Blood Count 12.6 K/mm3 (4.5-10.0)
--- NOTE | 2023-03-17 11:49 | PC.NURSE ---
[facility] [address] [facility] - [facility]
[2023-03-17] MEDS: HEPARIN SODIUM 5,000 UNITS/ML VIAL 4000 UNITS IV PUSH (11:54)
[2023-03-17] MEDS: NITROGLYCERIN SL 0.4 MG TABLET SUBLINGUAL (11:54)
[2023-03-17] MEDS: HEPARIN SOD/D5W 100 UNITS/ML 25,000 UNITS/250 ML BAG 8 UNITS IV CONT (11:55)
[2023-03-17 11:56] LABS: Alanine Aminotransferase 16 U/L (6-50); Albumin Level 4.3 g/dL (3.5-5.1); Alkaline Phosphatase 75 U/L (38-126); Anion Gap 9 mmol/L (8-16); Aspartate Amino Transferase 22 U/L (17-59); Bilirubin,Total 0.8 mg/dL (0.2-1.3); Blood Urea Nitrogen 9 mg/dL (9-20); Calcium 8.6 mg/dL (8.4-10.2); Carbon Dioxide 26 mmol/L (22-30); Chloride 98 mmol/L (98-107); Estimated CRCL calculation 77 ml/min; Estimated Glomerular Filt Rate > 60; Glucose 222 mg/dL (65-110); Potassium 4.2 mmol/L (3.4-5.0); Sodium 133 mmol/L (137-145)
[2023-03-17 11:58] LABS: Lipase < 10 U/L (23-300)
[2023-03-17] MEDS: PHARMACIST COMMUNICATION ORDER 1 EACH XX (12:06)
[2023-03-17 12:08] LABS: Troponin I < 0.012 ng/mL (0.000-0.034)
[2023-03-17 12:17] LABS: INR 1.2; Partial Thromboplastin Time 31.9 SECONDS (22.3-36.8); Prothrombin Time 15.4 Seconds (11.1-14.7)
--- NOTE | 2023-03-17 12:26 | PM.IMHP ---
H&P: HPI History of Present Illness Date/Time: 03/17/23 12:26 Chief Complaint: Chest pain for about 3-4 days Narrative: HPI: 58-year-old male with diabetes mellitus, seizure disorder, tobacco abuse. Patient presented to [facility] Emergency Room on 03/17/2023 with complaints of persistent chest that started about 3-4 days ago. His symptoms are associated with shortness of breath, dizziness and presyncope. He denies any known prior cardiac history including clinical AL, angina, heart failure or any known arrhythmias. EKG at presentation which I personally interpreted showed sinus rhythm, somewhat diffuse ST-elevation, and slightly more prominent in inferior leads. Cardiac catheterization lab was activated for patient's ongoing symptoms of chest discomfort. Review of Systems Review of Systems: General: Negative for fever, chills, fatigue Psychological: Negative for anxiety, depression Ophthalmic: negative for loss of vision ENT: Negative for epistaxis, headaches Allergy and immunology: Negative for hives, nasal congestion Hematologic and lymphatic: Negative for overt bleeding problems Endocrine: Negative for hot flashes, palpitations Respiratory: Negative for cough, hemoptysis Cardiovascular: Chest pain, dizziness, presyncope Gastrointestinal: Negative for abdominal pain, nausea, vomiting, hematochezia Musculoskeletal: Negative for myalgia, joint pains Neurological: Negative for weakness Dermatological: Negative for rash, skin discoloration PMFSH Past Medical History Medical History Diabetes type 2, controlled Epilepsy History of diabetes mellitus History of seizure disorder Surgical History Surgical History History of orthopedic surgery Pins in the right forearm Social History Social History Smoking packs per day: 0.5 Smoking cigarettes per day: 10.0 Years smoked: 25 Smoking pack-years: 12.50 Smoking status: Current every day smoker Tobacco type: cigarettes Alcohol intake: former Alcohol use details: NONE IN 14 YEARS Substance use: never Substance use type: does not use Living arrangements: with family Spiritual care concerns: No Meds Home Medications and Allergies Home Medications Medication Instructions Recorded Confirmed Type divalproex 500 mg tablet,delayed 500 mg PO TID 10/12/21 11/16/21 History release glimepiride 4 mg tablet 8 mg PO DAILY 10/12/21 11/16/21 History phenytoin sodium extended 100 mg 100 mg PO BID 10/12/21 11/16/21 History capsule hydrocodone 5 mg-acetaminophen 325 1 tablet PO Q6H PRN pain #6 tabs 10/19/21 11/16/21 Rx mg tablet hydrocodone 5 mg-acetaminophen 325 1 tablet PO Q6H PRN pain #6 tabs 11/16/21 Rx mg tablet methylprednisolone 4 mg tablets in See Rx Instructions PO .COMPLEX 02/24/23 Rx a dose pack (Medrol (Leonel)) #21 ea Allergies Allergy/AdvReac Type Severity Reaction Status Date / Time No Known Allergies Allergy Unknown Unknown Verified 03/17/23 11:33 Vital Signs Vital Signs - 24 hr 03/17/23 11:25 03/17/23 11:32 03/17/23 11:33 Temperature 36.6 C Pulse Rate 119 H 103 H 94 Respiratory Rate 16 15 16 Blood Pressure 129/74 119/71 Pulse Oximetry 100 100 100 Oxygen Delivery Room Air Oxygen Flow Rate 03/17/23 11:45 03/17/23 11:46 03/17/23 11:50 Temperature Pulse Rate 96 97 Respiratory Rate Blood Pressure 119/73 Pulse Oximetry 100 100 Oxygen Delivery Oxygen Flow Rate 03/17/23 11:50 03/17/23 12:13 Temperature Pulse Rate Respiratory Rate Blood Pressure Pulse Oximetry 99 Oxygen Delivery Room Air Nasal Cannula Oxygen Flow Rate 2 Exam Narrative: PHYSICAL EXAMINATION: GENERAL: Alert, oriented, no acute distress MENTAL STATUS: anxious EYES: Extraocular movements intact, no pallor
--- NOTE | 2023-03-17 12:31 | WPDCNINT ---
Assessment and Plan Assessment and plan (1) Chest pain: Code(s): R07.9 - Chest pain, unspecified Status: Acute Assessment and Plan: Patient presented with chest pain appears pleuritic and not cardiac from history and exam but he did had abnormal EKG with ST elevation in inferior leads. His 1st troponin was negative. He was diagnosed with STEMI and his emergent catheterization did not show any obstructive coronary disease and preserved LVEF This could be spontaneous thrombolysis or this could be vaso spasm or pericarditis or pleuritic chest pain Aspirin Will be continued Lipase is normal Colchicine has been started EKG done on admission to ICU reviewed Echocardiogram has been ordered I will also check chest x-ray and D-dimer. Patient is need neither hypoxic nor tachycardic to suggest PE. If d-dimer is elevated then will consider getting a CT scan (2) ST elevation (STEMI) myocardial infarction: Code(s): I21.3 - ST elevation (STEMI) myocardial infarction of unspecified site Status: Acute Assessment and Plan: See above (3) Diabetes type 2, controlled: Code(s): E11.9 - Type 2 diabetes mellitus without complications Status: Acute Assessment and Plan: Patient does not take any medications regularly for his diabetes. I will check HbA1c and start him on Sliding scale insulin (4) Epilepsy: Code(s): G40.909 - Epilepsy, unspecified, not intractable, without status epilepticus Status: Acute Assessment and Plan: Patient was diagnosed with epilepsy more than 2 decades ago but he does not take any medications regularly. He has not had any seizures in recent past. I will defer starting him on any AEDs at this time and monitor (5) Tobacco abuse: Code(s): Z72.0 - Tobacco use Status: Acute Assessment and Plan: Patient was counseled and encouraged to quit smoking Plan DVT prophylaxis -received anticoagulation today Code Status - Full Code Selvage Machine Operator Consult Note Consult date: 03/17/23 Reason for consult: STEMI HPI: Serafin Reed Bear is a 58 year old male with past medical history of hyperlipidemia diabetes smoking who presented with chief complaint of chest pain located in the center of the chest, sharp squeezing in quality was started 3-4 days ago and has been gradually getting worse. Chest pain was associated with shortness of breath, dizziness and was worse with deep breathing and coughing. He denied any fever but he did had exposure to a family member with RSV. He had dry cough. No shortness of breath Pain was 5 - 8/10 severe. Patient still rates his pain 5/10 at this time and states is worse when he takes a deep breath or coughs. Patient did admit to taking Viagra this morning. Patient admitted to me that he does not take any medications and has not taken any medications for many months. He has not had any seizures in recent past. All other systems were reviewed and were negative In ER patient was found to be having ST segment elevation in inferior leads and was diagnosed with STEMI. Cardiology was consulted and patient was taken to cardiac catheterization lab. Patient underwent cardiac catheterization which did not show any obstructive coronary disease with preserved LVEF. Patient now admitted to ICU further evaluation management Review of Systems Review of Systems: All systems reviewed & are unremarkable except as noted in HPI and below (HPI) [facility] Past Medical History Medical History (Updated 03/17/23 @ 13:01 by Kedar Casillas MD) Diabetes type 2, controlled Epilepsy History of diabetes mellitus History of seizure disorder Surgical History Surgical History History of orthopedic surgery Pins in the right forearm Family History Family History (Updated 03/17/23 @ 13:25 by Jovita Spann RN) Mother Alzheimer disease Hypertension Father Hypertension Sibl
--- NOTE | 2023-03-17 13:10 | WPDCARDPROC ---
Cardiac Cath Procedure Note Date of procedure:: 03/17/23 Performing physician:: Kedar Casillas MD Procedure Procedure note:: LEFT HEART CATHETERIZATION AND CORONARY ANGIOGRAM REPORT DATE OF PROCEDURE: 03/17/2023 INDICATION FOR PROCEDURE: chest pain, ST segment abnormality BRIEF CLINICAL HISTORY:?58-year-old male with diabetes mellitus, seizure disorder, tobacco abuse.? Patient presented to [facility] Emergency Room on 03/17/2023 with complaints of persistent chest? that started about 3-4 days ago.? His symptoms were associated with shortness of breath, dizziness and presyncope. ? He denied any known prior cardiac history including clinical [place], angina, heart failure or any known arrhythmias. ? EKG at presentation showed sinus rhythm,? somewhat diffuse ST-elevation, and slightly more prominent in inferior leads.? Cardiac catheterization lab was activated for patient's ongoing symptoms of chest discomfort. PROCEDURES PERFORMED: 1. Left heart catheterization- Selective left and right coronary angiogram; left ventriculogram and hemodynamic assessment 2. Deployment of Mynx hemostatic device 3. Moderate sedation-CPT code 79180 MODERATE SEDATION: Midazolam 1 mg; fentanyl 25 mcg; Start time 1234 , Stop time 1250 ; Total [id number] time 16 minutes; Krista Matias RN was trained observer for moderate sedation. ACCESS SITE: Right common femoral artery PROCEDURE NOTE: After obtaining informed consent, patient was brought to catheterization lab and prepped and draped in a usual sterile manner. After local anesthesia with lidocaine, right common femoral artery access was taken with micropuncture needle followed by insertion of a 6 Singaporean sheath. Selective left and right coronary angiogram was performed using 5 Singaporean JL4 and JR4 catheters respectively. Orthogonal views were taken. Next, a 5 Singaporean pigtail catheter was advanced in the LV cavity and was flushed with normal saline. LV pressure measurement was performed. After this, left ventriculogram was performed. The catheter was flushed again, and gradient across the aortic valve was measured on the pullback of the catheter. Finally, Mynx vascular closure device was deployed. Patient tolerated procedure well without any immediate procedure related complications. FINDINGS: LEFT MAIN CORONARY: large caliber vessel, no angiographically significant focal stenosis. LEFT ANTERIOR DESCENDING ARTERY: Medium to large caliber vessel, tapers distally, which LV apex. No significant stenosis seen in the LAD or diagonal branch. RAMUS INTERMEDIUS: Medium caliber vascular , no focal stenosis. LEFT CIRCUMFLEX ARTERY: medium to large caliber vessel, gives rise to very small caliber OM1 branch, medium to large caliber OM2 branch and small- medium caliber OM3 branch without significant focal stenosis. RIGHT CORONARY ARTERY: Unusual origin, medium caliber vessel, minor irregularities in the mid segment. Gives rise to small caliber PDA and PLV branches. LEFT VENTRICULOGRAM: Ventricular ectopy was seen during left ventriculogram, ejection fraction about 60%, LVEDP normal at 5 mmHg. HEMODYNAMIC ASSESSMENT: Opening pressure 110/55 mmHg , closing pressure 111/61 mmHg , LVEDP 5 mmHg , no significant gradient across aortic valve on the pullback of pigtail catheter. CONCLUSIONS: 1. No angiographically significant obstructive CAD. 2. Preserved LV systolic function, ejection fraction about 60%, LVEDP 5 mmHg. PLAN/RECOMMENDATIONS: Possible etiologies for clinical presentation include pericarditis, coronary vasospasm, spontaneous thrombolysis. - trend troponins ?-check echocardiogram with Doppler tomorrow ?- aspirin ?- initiate colchicine. ?- check CMP, CBC,? TSH, HB A1c. -Smoking cessation - hospitalist team will assist with management of diabetes mellitus and patient's seizure disorder. This document was completed by using [employer] Direct speech recognition software, th
--- NOTE | 2023-03-17 13:16 | ECG_ITS ---
Measurements Intervals Burden Rate: 67 P: 79 [place]: 163 QRS: 52 QRSD: 102 T: 59 QT: 386 QTc: 410 Interpretive Statements SINUS RHYTHM VOLTAGE CRITERIA FOR LVH MINIMAL Q WAVES- INF/LAT LEADS ST ELEVATION IN ANTEROLAT/INF LEADS- CONSIDER ACUTE INJURY BASELINE ARTIFACT- I, III, AVL, V2, V4-V6 ABNORMAL ECG COMPARED TO ECG 03/17/2023 11:38:05 NO SIGNIFICANT CHANGES Electronically Signed On 03-17-2023 16:21:05 PAINTER AND DECORATOR APPRENTICE by Mikel Lopez D.O.
--- NOTE | 2023-03-17 13:19 | ADMGEN ---
This patient, Serafin Bear, was admitted to Intensive Care Unit-6. Patient/family oriented to hospital policies and general routines including ID bracelet, bed and alarms, visiting hours, pain management, procedures, bathroom and other care routines, personal items, smoking policy, room service/diet, and visiting hours. Information on how to activate the Rapid Response Team has been discussed. Patient/Family are encouraged to report perceived risks to care and to ask questions if they do not understand what they are told or what they should do.
[2023-03-17] MEDS: SODIUM CHLORIDE 0.9% IV 1,000 ML 125 ML IV CONT (13:40)
[2023-03-17 14:21] LABS: D Dimer 0.47 ug/mL (<0.48)
[2023-03-17 14:24] LABS: Glucose Point of Care 113 mg/dl (65-105)
[2023-03-17] MEDS: COLCHICINE 0.6 MG TABLET PO ×2 (14:24→20:40)
[2023-03-17 15:02] LABS: Troponin I < 0.012 ng/mL (0.000-0.034)
[2023-03-17 15:43] LABS: Hemoglobin A1C 6.6 % (<5.7)
[2023-03-17 16:04] LABS: Influenza A QL RT-PCR Negative (Negative); Influenza B QL RT-PCR Negative (Negative); RSV RNA, RT-PCR Negative (Negative); SARS-CoV-2 RNA PCR Negative (Negative)
--- NOTE | 2023-03-17 17:15 | PM.IMCN ---
Assessment and Plan Assessment and plan (1) Chest pain: Qualifiers: Chest pain type: chest pain on breathing Qualified Code(s): R07.1 - Chest pain on breathing Code(s): R07.9 - Chest pain, unspecified Status: Acute Assessment and Plan: EKG, initial: Sinus rhythm, possible left atrial enlargement, voltage criteria for LVH, ST elevation in anterior lateral/inferior leads consistent with acute injury. Baseline wander. When compared to EKG in 2021, sinus rhythm now present and ST-elevation not present. Cardiac catheterization: No angiographically significant obstructive CAD, preserved LV systolic function with EF about 60%, LVEDP 5 mmHg. EKG, repeat: Sinus rhythm, voltage criteria for LVH, minimal N-swtyt-lsyhkvvl/lateral leads, ST elevation in anterior lateral/inferior leads consistent consider acute injury. Baseline artifact. When compared to EKG earlier today, no significant changes. Cardiology consulted by Vinny HANSEN MD. Provided the following recs post-cath -possible etiologies for clinical presentation include pericarditis, coronary vasospasm, spontaneous thrombolysis. Continue to trend troponins, check echo with Doppler tomorrow, aspirin, initiate colchicine, and monitor basic lab work. Add D-dimer, subsequently negative. (2) Diabetes type 2, controlled: Code(s): E11.9 - Type 2 diabetes mellitus without complications Status: Acute Assessment and Plan: Hypoglycemia protocol POC blood glucose ACHS home medication resumed/held -glimepiride held correct regimen ordered - low dose TIDWM and HS A1C ordered - 6.6 (3) Epilepsy: Code(s): G40.909 - Epilepsy, unspecified, not intractable, without status epilepticus Status: Acute Assessment and Plan: Reported that he was having seizures primarily when he was drinking alcohol. Seizure episodes stopped when he was no longer drinking, cessation was 19 years ago. However reports that he is on phenytoin 100 b.i.d. no recent events, will continue home medication. Plan Home Meds/Chronic Conditions -home gabapentin, glimepiride, and Viagra held. -continued home famotidine and Dilantin. Diet: Diabetic GI Prophylaxis: Continue home famotidine DVT Prophylaxis: SCDs Lines: pIV Code Status: Full Code HPI Date of Consult Consult date: 03/17/23 Requesting Physician: Kedar Casillas MD Primary Care Provider: MICROBIOLOGY LAB ANALYST PHYSICIAN Consult Narrative Reason for consult: Medical Managment Narrative: Serafin Bear is a 58 year old male who presented here with chest pain with PMH of DM, Sz r/t ETOH use, and DM. Patient presents here for evaluation with 4 days of symptoms. Initially started having pain in his left neck which then progressed to his midsternal chest and the right side of his neck over the course of a few days. Pain has been constant. He describes the chest pain as squeezing with radiation into his upper back. Associated weakness, dizziness, and shortness of breath. [place] diaphoretic and nauseous today. Has no previous history of cardiac events. Upon arrival to the ED was found to have ST segment elevation in the inferior leads and was diagnosed with an STEMI. Additional lab work showed mild elevation in white count at 12.6, chronic anemia with a hemoglobin of 12.5, mild hyponatremia, elevated glucose, initial troponin negative. CXR did not show any acute cardiopulmonary abnormalities. Cardiology was urgently consulted and patient was taken to the cardiac laboratory mechanic helper. Underwent cardiac catheterization which did not show any obstructive coronary artery disease and preserved LVEF. Post catheterization, patient continues to complain of squeezing midsternal chest pain that radiates into his back. Does worsen with palpation over the right side of his chest. Reports the shortness of breath and diaphoresis has resolved. Denies any recent drug use, did use a Viagra pill this morning, and reports no alcohol use
[2023-03-17 18:08] LABS: Troponin I < 0.012 ng/mL (0.000-0.034)
[2023-03-17 18:47] LABS: Thyroid Stimulating Hormone Reflex 0.808 uIU/mL (0.465-4.68)
[2023-03-17 20:51] LABS: Glucose Point of Care 139 mg/dl (65-105)
[2023-03-17 21:18] LABS: Amphetamine Screen Urine Negative (Negative); Barbiturate Screen Urine Negative (Negative); Benzodiazepines Screen Urine Positive (Negative); Cannabinoid Screen Urine Negative (Negative); Cocaine Screen Urine Negative (Negative); Methadone Screen Urine Negative (Negative); Opiate Screen Urine Negative (Negative); Phencyclidine Screen Urine Negative (Negative)
[2023-03-18] VITALS (7 sets, daily range): BP systolic 122–124; BP diastolic 65–70; PULSE 71–95; RESP 14–16; TEMP 36.9–37.3; O2SAT 98–100
--- NOTE | 2023-03-18 | ECHO_ITS ---
Patient Info Name: Serafin Bear Age: 58 years : 1965 Gender: Male Ht: 69 in Wt: 139 lbs BSA: 1.75 m2 HR: 70 bpm BP: 123 / 65 mmHg Heart Rhythm: Sinus Rhythm Technical Quality: Fair Exam Date: 03/18/2023 8:47 AM Exam Location: Echo Lab Patient Status: Inpatient Admit Date: 03/17/2023 Staff Ordering Physician: Kedar Casillas MD Attending Provider: Kedar Casillas MD Exam Type: CA echo doppler color flow Study Info Indications R07.9 - Chest pain, unspecified Complete two-dimensional, color flow and Doppler transthoracic echocardiogram is performed. Summary 1. Complete two-dimensional, color flow and Doppler transthoracic echocardiogram is performed. 2. Left ventricular chamber dimension is normal. 3. Left ventricular systolic function is normal, estimated at 60-65%. 4. There is no increased left ventricular wall thickness. 5. The left ventricular diastolic function is normal. 6. Left atrial chamber dimension is mildly enlarged. 7. Right atrial chamber dimension is mildly enlarged. 8. There is mild aortic valve regurgitation. Left Ventricle Left ventricular chamber dimension is normal. Left ventricular systolic function is normal, estimated at 60-65%. There is no increased left ventricular wall thickness. The left ventricular diastolic function is normal. Right Ventricle Right ventricular chamber dimension is normal. Right ventricular systolic function is normal. Left Atria Left atrial chamber dimension is mildly enlarged. Right Atria Right atrial chamber dimension is mildly enlarged. Aortic Valve The aortic valve is trileaflet. There is no aortic valve stenosis. There is mild aortic valve regurgitation. There is mild aortic valve calcification. Pulmonic Valve The pulmonic valve is normal. There is mild pulmonic regurgitation. Mitral Valve The mitral valve has normal leaflets. There is trace mitral valve regurgitation. Tricuspid Valve The tricuspid valve leaflets are normal. There is trace tricuspid valve regurgitation. Unable to estimate PA systolic pressure due to poor spectral resolution of tricuspid regurgitant jet velocity. Pericardium/Pleural The pericardium appears normal. There is no pericardial effusion. Inferior Vena Cava Normal inferior vena cava with >50% collapse upon inspiration consistent with normal right atrial pressure, 5 mmHg. Aorta The aortic root size at the sinus of Valsalva is normal. Left Ventricular Outflow Tract Name Value Normal LVOT 2D LVOT Diameter 2.0 cm LVOT Doppler LVOT Peak Gradient 4 mmHg LVOT Mean Gradient 2 mmHg LVOT VTI 20 cm LVOT VTI/AV VTI Ratio 0.8 LVOT Stroke Volume 64 ml LVOT CO 4.2 l/min LVOT CI 2.4 l/min/m2 Pulmonic Valve Name Value Normal PV Doppler PV Peak Gra
[2023-03-18 04:15] LABS: Basophils Absolute Auto 0.1 K/mm3 (0.0-0.1); Basophils Percent Auto 0.6 % (0.2-1.2); Eosinophils Absolute Auto 0.3 K/mm3 (0-0.3); Hematocrit 38.7 % (42.0-52.0); Hemoglobin 12.1 g/dL (14.0-18.0); Immature Granulocyte Absolute 0.03 K/mm3 (0.00-0.031); Immature Granulocyte Percent A 0.3 % (0-0.5); Lymphocytes Absolute Auto 2.57 K/mm3 (0.9-3.2); Lymphocytes Percent Auto 26.8 % (18.3-44.2); Mean Corpuscular HGB Conc 31.3 g/dl (32-36); Mean Corpuscular Hemoglobin 26.9 pg (26-34); Mean Corpuscular Volume 86.2 fl (80-100); Monocytes Absolute Auto 0.9 K/mm3 (0.1-0.6); Monocytes Percent Auto 9.5 % (2.6-8.5); Neutrophils Absolute Auto 5.7 K/mm3 (1.3-6.7); Neutrophils Percent Auto 59.8 % (45.5-73.1); Platelet Count Result 248 k/mm3 (150-375); Red Blood Count 4.49 M/mm3 (4.6-6.20); Red Cell Distribution Width 13.8 % (11.5-14.5); White Blood Count 9.6 K/mm3 (4.5-10.0)
[2023-03-18 04:36] LABS: Alanine Aminotransferase 12 U/L (6-50); Albumin Level 3.7 g/dL (3.5-5.1); Alkaline Phosphatase 77 U/L (38-126); Anion Gap 7 mmol/L (8-16); Aspartate Amino Transferase 18 U/L (17-59); Bilirubin,Total 0.6 mg/dL (0.2-1.3); Blood Urea Nitrogen 7 mg/dL (9-20); Calcium 8.5 mg/dL (8.4-10.2); Carbon Dioxide 23 mmol/L (22-30); Chloride 107 mmol/L (98-107); Estimated CRCL calculation 100 ml/min; Estimated Glomerular Filt Rate > 60; Glucose 123 mg/dL (65-110); Magnesium 1.6 mg/dL (1.6-2.3); Potassium 3.8 mmol/L (3.4-5.0); Sodium 137 mmol/L (137-145)
[2023-03-18] MEDS: ASPIRIN 81 MG ENTERIC TABLET PO (08:40)
[2023-03-18] MEDS: COLCHICINE 0.6 MG TABLET PO (08:40)
[2023-03-18] MEDS: PHENYTOIN SODIUM 100 MG EXTENDED RELEASE CAP PO (08:40)
[2023-03-18] MEDS: FAMOTIDINE 20 MG TABLET PO (08:40)
--- NOTE | 2023-03-18 13:41 | PM.DS ---
DS: Admitting Diagnosis Discharge Date 03/18/23 Admitting Diagnosis Chest pain DS: Discharge Diagnosis Discharge Diagnosis (1) Chest pain: Qualifiers: Chest pain type: chest pain on breathing Qualified Code(s): R07.1 - Chest pain on breathing Code(s): R07.9 - Chest pain, unspecified Status: Acute Assessment and Plan: 58-year-old male with diabetes mellitus, seizure disorder, tobacco abuse. Patient presented with 3-4 day history of persistent chest pain associated with shortness of breath and dizziness. His EKG showed somewhat diffuse ST elevation, more prominent in the inferior leads. He underwent emergent coronary angiogram which did not show any significant obstructive CAD. LVEF preserved. Possible etiologies for clinical presentation include pericarditis, coronary vasospasm, spontaneous thrombolysis. - Continue aspirin - Continue colchicine - Echo: 1. Complete two-dimensional, color flow and Doppler transthoracic echocardiogram is performed. 2. Left ventricular chamber dimension is normal. 3. Left ventricular systolic function is normal, estimated at 60-65%. 4. There is no increased left ventricular wall thickness. 5. The left ventricular diastolic function is normal. 6. Left atrial chamber dimension is mildly enlarged. 7. Right atrial chamber dimension is mildly enlarged. 8. There is mild aortic valve regurgitation. - Chest pain free and asymptomatic today. OK for discharge from a cardiac standpoint (2) Type 2 diabetes mellitus: Qualifiers: Diabetes mellitus prison insulin use: without terminal operations manager use Code(s): E11.9 - Type 2 diabetes mellitus without complications Status: Acute Assessment and Plan: oral hypoglycemics. Sliding scale insulin Will consult hospitalist. (3) Epilepsy: Code(s): G40.909 - Epilepsy, unspecified, not intractable, without status epilepticus Status: Acute Assessment and Plan: continue outpatient antiepileptic medications. Will consult hospitalist. (4) Tobacco abuse: Code(s): Z72.0 - Tobacco use Status: Acute Assessment and Plan: smoking cessation counseling done DS: Summary Hospital Course Hospital Course: 58-year-old male with diabetes mellitus, seizure disorder, tobacco abuse. Patient presented with 3-4 day history of persistent chest pain associated with shortness of breath and dizziness. His EKG showed somewhat diffuse ST elevation, more prominent in the inferior leads. He underwent emergent coronary angiogram which did not show any significant obstructive CAD. LVEF preserved. Started on colchicine with recurrent chest discomfort. Time Spent with Patient Time attestation: Total time spent providing and/or coordinating discharge services: Exam Narrative: PHYSICAL EXAMINATION: GENERAL: Alert, oriented, no acute distress MENTAL STATUS: anxious EYES: Extraocular movements intact, no pallor EARS: External ears appear normal, hearing grossly normal NOSE: Normal and patent, no discharge MOUTH: Mucous membranes moist, tongue normal NECK: Supple, no JVD CHEST: Good respiratory effort, clear to auscultation HEART: Normal rate, regular rhythm, normal S1 and S2, no audible murmurs ABDOMEN: Soft, nontender NEUROLOGICAL: Alert, oriented, normal speech, no gross motor deficits MUSCULOSKELETAL: No major deformity, no amputation EXTREMITIES: No pedal edema, no clubbing, no cyanosis SKIN: no rash on the exposed area, no cyanosis PSYCHIATRIC: anxious, no agitation DS: Data Data Completed and Pending Labs on day of discharge: Labs from last 24 hours 03/18/23 03/17/23 03/17/23 03:36 20:56 20:39 WBC 9.6 RBC 4.49 L Hgb 12.1 L Hct 38.7 L MCV 86.2 MCH 26.9 MCHC 31.3 L RDW 13.8 Plt Count 248 MPV 10.0 Immature Gran % (Auto) 0.3 Neut % (Auto) 59.8 Lymph % (Auto) 26.8 [place] % (Auto) 9.5 H
--- NOTE | 2023-03-18 13:43 | ECG_ITS ---
Measurements Intervals Gatzke Rate: 61 P: 81 PA: 157 QRS: 52 QRSD: 86 T: 37 QT: 385 QTc: 388 Interpretive Statements SINUS RHYTHM VOLTAGE CRITERIA FOR LVH NONSPECIFIC ST ELEVATION IN ANT/INF LEADS BORDERLINE ECG COMPARED TO ECG 03/17/2023 13:25:35 NO SIGNIFICANT CHANGES Electronically Signed On 03-18-2023 15:00:52 FORM WORKER by Mikel Lopez D.O.
== END 2023-03-18 15:34 | disposition home or self-care (01) | DRG 190 ==
LOC: ANHED 12:12 → ANHICU 12:16
PROVIDERS: Internal Medicine; Student in an Organized Health Care Education/Training Program; Admitting Provider Internal Medicine Cardiovascular Disease; Emergency Provider Emergency Medicine; Visit Provider Nurse Practitioner
PROC: 4A023N7 Measurement of Cardiac Sampling and Pressure, Left Heart, Percutaneous Approach (ICD-10-PCS; CPT 93452; principal; 2023-03-17 12:00)
PROC: 4A023N7 Measurement of Cardiac Sampling and Pressure, Left Heart, Percutaneous Approach (ICD-10-PCS; 2023-03-17 12:00)
DX: I21.3 ST elevation (STEMI) myocardial infarction of unspecified site (principal); E78.5 Hyperlipidemia, unspecified; E11.9 Type 2 diabetes mellitus without complications; G40.909 Epilepsy, unspecified, not intractable, without status epilepticus; F17.210 Nicotine dependence, cigarettes, uncomplicated; Z20.822 Contact with and (suspected) exposure to COVID-19; E87.1 Hypo-osmolality and hyponatremia
CPT/HCPCS: 36415; 71045; 80053; 80307; 82948; 83036; 83690; 83735; 84443; 84484; 85025; 85380; 85610; 85730; 87637; 93005; 93306; 93458; 99285; A9270; C1760; C1769; C1887; C1894; G0269; J1644; J2250; J2305; J3010; J7030; J7040

== ENCOUNTER 2023-04-12 12:57 | Emergency (ER) | payer OTHER, SELFPAY ==
--- NOTE | ~2023-04-12 | XR_ITS ---
EXAMINATION: XR ankle RT min 3V DATE: 04/12/2023 20:03 INDICATION: Right ankle pain and weakness with dorsiflexion TECHNIQUE: Anteroposterior, oblique, mortise, and lateral views of the right ankle were obtained. COMPARISON: None. FINDINGS: Bone alignment is normal. No fracture. Joint spaces are normal with no right ankle joint effusion. Th ere is some heterotopic ossification along the distal tibiofibular syndesmosis which could be either enthesopathic or sequela of old trauma. Soft tissues are unremarkable. IMPRESSION: 1. No acute osseous abnormality. Reviewed, dictated and finalized at location A. ECT BINDER SETTER
--- NOTE | ~2023-04-12 | XR_ITS ---
EXAMINATION: XR knee RT 3V DATE: 04/12/2023 20:04 INDICATION: Right knee pain TECHNIQUE: Anteroposterior, oblique and crosstable lateral views of the right knee were obtained COMPARISON: 02/24/2023 FINDINGS: Alignment is normal. No fracture. Joint spaces appear normal on nonweightbearing imaging. No joint e ffusion/layering lipohemarthrosis. Again seen is mild hypertrophic change along the medial epicondyle of the right femur consistent with a Janes-Stieda lesion in the setting of a chronic medial col lateral ligament sprain. Enthesophyte at the lateral metadiaphyseal region of the proximal right tibi a. Soft tissues are unremarkable. IMPRESSION: 1. No right knee joint effusion or acute osseous abnormality. Reviewed, dictated and finalized at location A. DE WIRER
[2023-04-12 13:41] VITALS: BP 131/73; PULSE 82; RESP 16; TEMP 36.7; O2SAT 100
[2023-04-12 18:58] VITALS: BP 137/95; PULSE 67; RESP 18; O2SAT 100
--- NOTE | 2023-04-12 19:53 | ED.EXTPRO ---
HPI - Extremity Problem General Chief complaint: Extremity Problem,Nontraumatic Stated complaint: right leg dragging x 1 week Time Seen by Provider: 04/12/23 19:11 History of Present Illness HPI Narrative: Patient is a 58-year-old male presenting with right knee and ankle pain. States that he has a history of trauma to the right knee that required repair of numerous ligamentous injuries many years ago. States that over the last several weeks he has had pain in the right knee as well as his right ankle. States that it is difficult for him to fully straighten his right knee which makes him drag his leg when he is walking. His fiancee noticed in told him to get checked out. States that he has trouble dorsiflexing his right ankle. He denies any swelling or redness. No fevers. No new traumas. No lower back pain, numbness, weakness. No further complaints. Related Data Home Medications Medication Instructions Recorded Confirmed glimepiride 4 mg tablet 8 mg PO DAILY 10/12/21 03/17/23 phenytoin sodium extended 100 mg 100 mg PO BID 10/12/21 03/17/23 capsule famotidine 20 mg tablet 20 mg PO DAILY 03/17/23 03/17/23 gabapentin 300 mg capsule 300 mg PO Q8H 03/17/23 03/17/23 sildenafil 100 mg tablet (Viagra) 100 mg PO DAILY PRN Sexual Activity 03/17/23 03/17/23 Allergies Allergy/AdvReac Type Severity Reaction Status Date / Time No Known Allergies Allergy Unknown Unknown Verified 03/17/23 11:33 Review of Systems Review of Systems: All systems reviewed & are unremarkable except as noted in HPI and below PMFSH Past Medical History Medical History Diabetes type 2, controlled Epilepsy History of diabetes mellitus Surgical History Surgical History History of orthopedic surgery Pins in the right forearm Family History Family History Mother Alzheimer disease Hypertension Father Hypertension Sibling Cancer Social History Social History Smoking packs per day: 1 Smoking cigarettes per day: 20.0 Years smoked: 45 Smoking pack-years: 45.00 Smoking status: Current every day smoker Tobacco type: cigarettes Alcohol intake: former Alcohol use details: NONE IN 14 YEARS Substance use: former Substance use type: crack/cocaine Do You Feel Safe in your Home?: Yes Lack of Transportation: No Lack of Food: Never True Current Housing: I Have Housing Concerned About Future Housing: No Difficulty Paying Gas/Electric Bills: No Difficulty Paying for Meds: No Currently Unemployed: No Education: Decline to Answer Difficulty w/ Childcare or Family Care: No Living arrangements: with family Spiritual care concerns: No Exam Narrative: GENERAL: Well-appearing, in no acute distress, pleasant cooperative HEAD: Normocephalic, atraumatic. EYES: PERRLA and EOMI. ENT: Grossly unremarkable NECK: Supple. BACK:no midline thoracic or lumbar tenderness CHEST: No respiratory distress. HEART: Regular rate and rhythm EXTREMITIES: medial tenderness of R knee, healed incision over quadriceps tendon, difficulty with full extension of R knee but ROM otherwise intact; ankle without swelling, redness, tenderness; plantarflexion intact, pt unable to dorsiflex; pulses 2+, no sensory deficits SKIN: Warm, dry, no rash. NEURO: No focal deficits. Alert and oriented x3. PSYCH: Normal mood and affect. Course Vital Signs Vital signs: Vital Signs Temperature 98.0 F 04/12/23 13:41 Pulse Rate 82 04/12/23 13:41 Respiratory Rate 16 04/12/23 13:41 Blood Pressure 131/73 04/12/23 13:41 Pulse Oximetry 100 04/12/23 13:41 Oxygen Delivery Room Air 04/12/23 13:41 Temperature 98.0 F 04/12/23 13:41 Pulse Rate 71 04/12/23 20:27 Respiratory Rate 19
[2023-04-12] MEDS: ACETAMINOPHEN 500 MG TABLET 1000 MG PO (20:10)
[2023-04-12] MEDS: IBUPROFEN 600 MG TABLET PO (20:10)
[2023-04-12 20:27] VITALS: BP 133/96; PULSE 71; RESP 19; O2SAT 100
--- NOTE | 2023-04-12 20:41 | PC.NURSE ---
Pt provided drink and chips at this time per request.
[2023-04-12 21:46] VITALS: BP 137/92; PULSE 70; RESP 17; O2SAT 100
== END 2023-04-12 21:48 | disposition home or self-care (01) ==
PROVIDERS: Emergency Provider Emergency Medicine
DX: M25.561 Pain in right knee (principal); M25.571 Pain in right ankle and joints of right foot; E11.9 Type 2 diabetes mellitus without complications; G40.909 Epilepsy, unspecified, not intractable, without status epilepticus; F17.210 Nicotine dependence, cigarettes, uncomplicated; Z79.84 Long term (current) use of oral hypoglycemic drugs; Z79.82 Long term (current) use of aspirin
CPT/HCPCS: 73562; 73610; 99284; A9270

== ENCOUNTER 2024-11-29 22:55 | Emergency (ER) | payer OTHER, SELFPAY ==
--- NOTE | ~2024-11-29 | XR_ITS ---
EXAMINATION: XR elbow RT 2V, 11/29/2024 23:02 CDT HISTORY: POSSIBLE DEFORMITY COMPARISON: No comparisons available. Findings: No acute fracture or malalignment. No significant degenerative changes. Soft tissues unremarkable. Impression: No acute fracture or malalignment. Reviewed, dictated and finalized at location A. Impression: No acute fracture or malalignment.
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
--- NOTE | 2024-11-30 04:18 | ED.UPPEXIN ---
HPI - Extremity Injury (Upper) General Chief Complaint: Extremity Injury, Upper Stated Complaint: R ELBOW DEFORMITY Time Seen by Provider: 11/29/24 23:01 History of Present Illness HPI narrative: Patient was playing with his granddaughter when he slipped and fell, put his right arm out to catch himself, and now has pain to his right elbow. He is still able to move it. No focal numbness or weakness or tingling Related Data Home Medications ?Medication ?Instructions ?Recorded ?Confirmed ?Last Taken ?Type glimepiride 4 mg tablet 8 mg PO DAILY 10/12/21 03/17/23 10/19/21 06:00 History phenytoin sodium extended 100 mg 100 mg PO BID 10/12/21 03/17/23 10/19/21 06:00 History capsule famotidine 20 mg tablet 20 mg PO DAILY 03/17/23 03/17/23 Unknown History gabapentin 300 mg capsule 300 mg PO Q8H 03/17/23 03/17/23 Unknown History sildenafil 100 mg tablet (Viagra) 100 mg PO DAILY PRN Sexual Activity 03/17/23 03/17/23 Unknown History Allergies Allergy/AdvReac Type Severity Reaction Status Date / Time No Known Allergies Allergy Unknown Unknown Verified 11/29/24 22:55 Review of Systems Review of Systems: All systems reviewed & are unremarkable except as noted in HPI and below PMFSH Past Medical History Medical History Diabetes type 2, controlled Epilepsy History of diabetes mellitus Surgical History Surgical History History of orthopedic surgery Pins in the right forearm Family History Family History Mother Alzheimer disease Hypertension Father Hypertension Sibling Cancer Social History Social History Smoking packs per day: 1 Smoking cigarettes per day: 20.0 Years smoked: 45 Smoking pack-years: 45.00 Smoking status: Current every day smoker Tobacco type: cigarettes Alcohol intake: former Alcohol use details: NONE IN 14 YEARS Substance use: former Substance use type: crack/cocaine Do You Feel Safe in your Home?: Yes Lack of Transportation: No Lack of Food: Never True Current Housing: I Have Housing Concerned About Future Housing: No Difficulty Paying Gas/Electric Bills: No Difficulty Paying for Meds: No Currently Unemployed: No Education: Decline to Answer Difficulty w/ Childcare or Family Care: No Living arrangements: with family Spiritual care concerns: No Exam Narrative: EXAMINATION OF ORGAN SYSTEMS/BODY AREAS: Constitutional: Vital signs per nursing GENERAL:[No acute distress, non-toxic appearing.] HEAD: Normal with no signs of head trauma. EYES: EOMI, conjunctiva normal ENT: Hearing grossly intact LUNGS: Nonlabored breathing. HEART: [Regular rate and rhythm] ABD: [Soft], [nontender to palpation] EXT: Normal range of motion; tenderness to palpation to the right elbow SKIN: [No rashes or lesions.] NEURO: [Alert and oriented x 3. No gross focal sensory or strength deficits.] PSYCH: Normal affect MDM - Extremity Injury (Upper) MDM Narrative Medical decision making narrative: Patient presents here with right elbow injury, he is well-appearing with some tenderness to the elbow, neurovascularly intact normal range of motion. X-ray on my independent interpretation does not show any obvious fracture, sent to [facility] which does not show acute osseous abnormality. Mehdi wrap applied, given follow-up for Orthopedics with return precautions Discharge Plan Discharge Clinical Impression: Elbow pain Patient Disposition: Home Condition: Stable Instructions: Elbow Strain (ED) Additional Instructions: Please follow-up with orthopedic surgeon, you can take Tylenol as needed for pain, if your symptoms get worse you can always return to the emergency room. Patient Language: Nepali Prescriptions: No Action phenytoin sodium extended 100 mg capsule 100 mg PO BID glimepiride 4 mg tablet 8 mg PO DAILY sildenafil [Viagra] 100 mg tablet 100 mg PO DAILY PRN (Reason: Sexual Activity) famotidine 20 mg tablet 20 mg PO DAILY gabapentin 300 mg capsule 300 mg PO Q8H aspirin 81 mg Tablet,Delayed Release (Dr/Ec) 81 mg PO QAM 30 Days Qty: 30 3RF colchicine [Colcrys] 0.6 mg Tablet 0.6 mg PO Q12HR 30 Days Qty: 60 2RF acetaminophen 500 mg tablet 500 mg PO Q6H PRN (Reason: fever or pain) Qty: 30 0RF ibuprofen 400 mg tablet 400 mg PO TID PRN (Reason: fever or pain) Qty: 14 0RF Follow-up/Referrals: Ken Gaviria MD [Physician, Orthopedics] - 2 Days UNKNOWN,DOCTOR [Non-Staff]
== END 2024-11-30 00:21 | disposition home or self-care (01) ==
PROVIDERS: Emergency Provider Emergency Medicine
DX: M25.521 Pain in right elbow (principal); F17.291 Nicotine dependence, other tobacco product, in remission; E11.9 Type 2 diabetes mellitus without complications; G40.909 Epilepsy, unspecified, not intractable, without status epilepticus; W01.0XXA Fall on same level from slipping, tripping and stumbling without subsequent striking against object, initial encounter
CPT/HCPCS: 73070; 99283